=== PATIENT | female | born 1990 | race Caucasian/White ===

== ENCOUNTER 2020-06-14 10:27 | Outpatient (REF) | payer OTHER, SELFPAY ==
[2020-06-14 16:31] LABS: MANUAL DIFF FLAG NO
[2020-06-14 16:36] LABS: Basophils Percent Auto 0.4 % (0-2); Eosinophils Absolute Auto 0.1 X10*3/uL (0.0-0.4); Eosinophils Percent Auto 1.9 % (0-4); Hematocrit 41.3 % (37-47); Hemoglobin 13.1 g/dl (12.0-16.0); Imm Gran Abs Auto 0.02 X10*3/uL (0.00-0.03); Imm Gran Pct Auto 0.3 % (0.0-0.4); Lymphocytes Absolute Auto 2.4 X10*3/uL (1.2-4.9); Lymphocytes Percent Auto 36.3 % (20-40); Mean Corpuscular HGB Conc 31.7 g/dl (31.0-35.0); Mean Corpuscular Hemoglobin 27.9 pg (27.0-33.0); Mean Corpuscular Volume 88.1 fL (80-98); Mean Platelet Volume 10.8 fL (9.4-12.3); Monocytes Absolute Auto 0.3 X10*3/uL (0.1-1.2); Monocytes Percent Auto 4.8 % (2-11); Neutrophils Absolute Auto 3.8 X10*3/uL (2.0-8.3); Neutrophils Percent Auto 56.3 % (45-73); Platelet Count 329 X10*3/uL (160-400); Red Blood Count 4.69 X10*6/uL (4.20-5.50); Red Cell Distribution Width 12.8 % (11.0-16.0); White Blood Count 6.7 X10*3/uL (4.8-10.8)
[2020-06-14 17:01] LABS: Alanine Aminotransferase 47 U/L (0-31); Albumin Level 4.7 g/dL (3.5-5.0); Alkaline Phosphatase 62 U/L (39-117); Anion Gap 19 (12-20); Aspartate Amino Transferase 43 U/L (5-31); Bilirubin Direct 0.3 mg/dL (0.0-0.5); Bilirubin Total 0.9 mg/dL (0.0-1.0); Blood Urea Nitrogen 12 mg/dL (9-16); Calcium 9.1 mg/dL (8.4-10.2); Carbon Dioxide 22 mmol/L (22-29); Chloride 100 mmol/L (96-108); Cholesterol 296 mg/dL; Estimated Glomerular Filt Rate > 60; Glucose Fasting 150 mg/dL (60-99); HDL Cholesterol 71 mg/dL; LDL Cholesterol Calculated 167 mg/dl; Potassium 4.2 mmol/L (3.3-5.1); Sodium 137 mmol/L (135-145); Total Protein 7.5 g/dL (6.5-8.0); Triglycerides 294 mg/dL
[2020-06-14 17:23] LABS: TSH reflex Free T4 2.38 uIU/mL (0.32-4.0)
[2020-06-14 17:24] LABS: Vitamin B12 387 pg/mL (200-900)
[2020-06-20 19:32] LABS: Vitamin D 25-OH, D2 <4 ng/mL; Vitamin D 25-OH, D3 34 ng/mL; Vitamin D 25-OH, Total 34 ng/mL (30-100)
== END 2020-06-14 10:28 | disposition home or self-care (01) ==
LOC: HO.HMGCLDS 10:27
PROVIDERS: PCP Internal Medicine; Visit Provider Internal Medicine
DX: F43.10 Post-traumatic stress disorder, unspecified (principal); F32.9 Major depressive disorder, single episode, unspecified; R10.30 Lower abdominal pain, unspecified; N92.6 Irregular menstruation, unspecified; R25.2 Cramp and spasm; Z76.89 Persons encountering health services in other specified circumstances
CPT/HCPCS: 36415; 80048; 80061; 80076; 82306; 82607; 84443; 85025

== ENCOUNTER 2020-06-17 11:06 | Outpatient (REF) | payer OTHER, SELFPAY ==
[2020-06-18 08:46] LABS: BV Int Neg Control Negative (Negative); BV Int Pos Control Positive (Positive)
[2020-06-18 18:57] LABS: C. trachomatis RNA TMA NOT DETECTED (NOT DETECTED); N. gonorrhoeae RNA TMA NOT DETECTED (NOT DETECTED)
[2020-06-20 16:02] LABS: HPV mRNA E6/E7 rflx Not Detected (Not Detected)
== END 2020-06-17 11:07 | disposition home or self-care (01) ==
LOC: HO.LAB 11:06
PROVIDERS: Visit Provider Advanced Practice Midwife
DX: N93.9 Abnormal uterine and vaginal bleeding, unspecified (principal)
CPT/HCPCS: 36415; 87480; 87491; 87510; 87591; 87624; 87660; 88142

== ENCOUNTER 2020-06-17 12:51 | Outpatient (REF) | payer OTHER, SELFPAY ==
--- NOTE | ~2020-06-17 | US_ITS ---
EXAMINATION: PELVIC ULTRASOUND CLINICAL INFORMATION: Pelvic pain COMPARISON: None TECHNIQUE: Transabdominal and transvaginal pelvic ultrasound was performed. Transvaginal exam was performed for better visualization of the uterus and ovaries. FINDINGS: The uterus is anteverted and measures 6.7 x 3.8 x 5.3 cm in dimension. No focal uterine lesion is seen. Endometrial thickness is normal measuring 0.5 cm. The cervix is normal. The right ovary measures 3.3 x 2.8 x 2.7 cm and contains a 1.4 x 1.4 x 1.3 cm complex cyst with internal echoes. The left ovary is normal-appearing and measures 3.2 x 1.5 x 1.5 cm. There is no fluid in the pelvis. US/US transvaginal IMPRESSION: Small complex right ovarian cyst. Otherwise unremarkable exam.
--- NOTE | ~2020-06-17 | US_ITS ---
EXAMINATION: PELVIC ULTRASOUND CLINICAL INFORMATION: Pelvic pain COMPARISON: None TECHNIQUE: Transabdominal and transvaginal pelvic ultrasound was performed. Transvaginal exam was performed for better visualization of the uterus and ovaries. FINDINGS: The uterus is anteverted and measures 6.7 x 3.8 x 5.3 cm in dimension. No focal uterine lesion is seen. Endometrial thickness is normal measuring 0.5 cm. The cervix is normal. The right ovary measures 3.3 x 2.8 x 2.7 cm and contains a 1.4 x 1.4 x 1.3 cm complex cyst with internal echoes. The left ovary is normal-appearing and measures 3.2 x 1.5 x 1.5 cm. There is no fluid in the pelvis. US/US pelvic complete IMPRESSION: Small complex right ovarian cyst. Otherwise unremarkable exam.
== END 2020-06-17 12:52 | disposition home or self-care (01) ==
LOC: HO.HMGCX 12:51
PROVIDERS: PCP Internal Medicine; Visit Provider Internal Medicine
DX: N92.6 Irregular menstruation, unspecified (principal); R10.30 Lower abdominal pain, unspecified
CPT/HCPCS: 76830; 76856; 81003; 81025

== ENCOUNTER 2020-06-28 09:48 | Outpatient (REF) | payer OTHER, SELFPAY ==
[2020-06-28 12:06] LABS: Estimated Average Glucose 166 mg/dL; Hemoglobin A1c % 7.4 %
[2020-06-30 11:41] LABS: C. trachomatis RNA TMA NOT DETECTED (NOT DETECTED); N. gonorrhoeae RNA TMA NOT DETECTED (NOT DETECTED)
== END 2020-06-28 09:49 | disposition home or self-care (01) ==
LOC: HO.HMGCLDS 09:48
PROVIDERS: PCP Internal Medicine; Visit Provider Internal Medicine
DX: R73.01 Impaired fasting glucose (principal); N93.9 Abnormal uterine and vaginal bleeding, unspecified
CPT/HCPCS: 36415; 83036; 87491; 87591

== ENCOUNTER → 2020-07-01 08:48 | Outpatient (BNVA) | payer OTHER, SELFPAY | PROVIDERS: PCP Internal Medicine; Visit Provider Advanced Practice Midwife | DX: N93.9 Abnormal uterine and vaginal bleeding, unspecified (principal); N83.299 Other ovarian cyst, unspecified side; Z71.2 Person consulting for explanation of examination or test findings | CPT/HCPCS: 99212 ==

== ENCOUNTER 2020-08-27 12:53 | Outpatient (REF) | payer OTHER, SELFPAY ==
--- NOTE | ~2020-08-27 | US_ITS ---
EXAMINATION: US PELVIS COMPLETE US PELVIS TRANSVAGINAL CLINICAL INFORMATION: Followup right ovarian cyst. LMP 07/22/2020. COMPARISON: Pelvic ultrasound dated 06/17/2020 TECHNIQUE: Transabdominal and transvaginal imaging was performed. FINDINGS: The uterus is of normal size and echogenicity measuring 7.6 x 5.1 x 5.2 cm. A regular homogeneous endometrium is identified measuring 1.0 cm. There are nabothian cysts. Both ovaries are of normal size and echogenicity. The right measures 3.7 x 2.5 x 1.9 cm for a volume of 8.8 mL. Redemonstration of a thick-walled cyst within the right ovary which measures 1.9 x 1.5 x 1.2 cm. Previously, a complex cyst was seen in this region measuring up to 1.4 cm. Findings may represent a corpus luteum. The left measures 3.5 x 1.4 x 1.6 cm for a volume of 4 mL. There is no pelvic free fluid. US/US transvaginal IMPRESSION: 1. Thick-walled right ovarian cyst measuring up to 1.9 cm in the region of the previously seen complex 1.4 cm cyst. Findings may represent a corpus luteum. 2. No new adnexal lesion. 3. Sonographically unremarkable uterus and endometrium.
--- NOTE | ~2020-08-27 | US_ITS ---
EXAMINATION: US PELVIS COMPLETE US PELVIS TRANSVAGINAL CLINICAL INFORMATION: Followup right ovarian cyst. LMP 07/22/2020. COMPARISON: Pelvic ultrasound dated 06/17/2020 TECHNIQUE: Transabdominal and transvaginal imaging was performed. FINDINGS: The uterus is of normal size and echogenicity measuring 7.6 x 5.1 x 5.2 cm. A regular homogeneous endometrium is identified measuring 1.0 cm. There are nabothian cysts. Both ovaries are of normal size and echogenicity. The right measures 3.7 x 2.5 x 1.9 cm for a volume of 8.8 mL. Redemonstration of a thick-walled cyst within the right ovary which measures 1.9 x 1.5 x 1.2 cm. Previously, a complex cyst was seen in this region measuring up to 1.4 cm. Findings may represent a corpus luteum. The left measures 3.5 x 1.4 x 1.6 cm for a volume of 4 mL. There is no pelvic free fluid. US/US pelvic complete IMPRESSION: 1. Thick-walled right ovarian cyst measuring up to 1.9 cm in the region of the previously seen complex 1.4 cm cyst. Findings may represent a corpus luteum. 2. No new adnexal lesion. 3. Sonographically unremarkable uterus and endometrium.
== END 2020-08-27 12:54 | disposition home or self-care (01) ==
LOC: HO.HMGCX 12:53
PROVIDERS: Visit Provider Advanced Practice Midwife
DX: N83.299 Other ovarian cyst, unspecified side (principal)
CPT/HCPCS: 76830; 76856

== ENCOUNTER 2020-08-28 07:45 | Outpatient (RCR) | payer OTHER, SELFPAY ==
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
--- NOTE | 2020-07-08 07:28 | HO.TMSDAILY2 ---
TMS Daily Progress Note Daily TMS Progress Note Date of Service: 07/08/20 Week #: 1 Treatment #(06-08): 1 PHQ-9 Pre-Treatment (06-05): 20 PHQ-9 Most Recent (06-05): 20 Reviewed: TMS Tech Note Reviewed Verification: I have reviewed the TMS Crm Functional Analyst Note and agree with the contents. The patient remains a candidate to continue TMS treatment per protocol.
--- NOTE | 2020-07-09 15:25 | P.PNPS_ITS ---
TMS Daily Progress Note Daily TMS Progress Note Date of Service: 07/09/20 Week #: 1 Treatment #(06-08): 2 PHQ-9 Pre-Treatment (06-05): 20 PHQ-9 Most Recent (06-05): 20 Reviewed: TMS Tech Note Reviewed Verification: I have reviewed the TMS Radio Communications Mechanician Note and agree with the contents. The patient remains a candidate to continue TMS treatment per pro tocol.
--- NOTE | 2020-07-10 08:26 | P.PNPS_ITS ---
TMS Daily Progress Note Daily TMS Progress Note Date of Service: 07/10/20 Week #: 1 Treatment #(06-08): 3 PHQ-9 Pre-Treatment (06-05): 20 PHQ-9 Most Recent (06-05): 20 Reviewed: TMS Tech Note Reviewed Verification: I have reviewed the TMS Mobile Paramedical Examiner Note and agree with the contents. The patient remains a candidate to continue TMS treatment per pro tocol.
--- NOTE | 2020-07-11 22:58 | P.PNPS_ITS ---
TMS Daily Progress Note Daily TMS Progress Note Date of Service: 07/11/20 Week #: 1 Treatment #(06-08): 4 PHQ-9 Pre-Treatment (06-05): 20 PHQ-9 Most Recent (06-05): 20 Reviewed: TMS Tech Note Reviewed Verification: I have reviewed the TMS Elastic Attacher Overlock Note and agree with the contents. The patient remains a candidate to continue TMS treatment per pro tocol.
--- NOTE | 2020-07-12 23:32 | HO.TMSDAILY2 ---
TMS Daily Progress Note Daily TMS Progress Note Date of Service: 07/13/20 Week #: 1 Treatment #(06-08): 5 PHQ-9 Pre-Treatment (06-05): 20 PHQ-9 Most Recent (06-05): 20 Reviewed: TMS Tech Note Reviewed Verification: I have reviewed the TMS Automatic Winder Operator Note and agree with the contents. The patient remains a candidate to continue TMS treatment per protocol.
--- NOTE | 2020-07-15 21:19 | P.PNPS_ITS ---
TMS Daily Progress Note Daily TMS Progress Note Date of Service: 07/15/20 Week #: 2 Treatment #(06-08): 6 PHQ-9 Pre-Treatment (06-05): 20 PHQ-9 Most Recent (06-05): 20 Reviewed: TMS Tech Note Reviewed Verification: I have reviewed the TMS Iv Technician Note and agree with the contents. The patient remains a candidate to continue TMS treatment per pro tocol.
--- NOTE | 2020-07-16 14:52 | P.PNPS_ITS ---
TMS Daily Progress Note Daily TMS Progress Note Date of Service: 07/16/20 Week #: 2 Treatment #(06-08): 7 PHQ-9 Pre-Treatment (06-05): 20 PHQ-9 Most Recent (06-05): 20 Reviewed: TMS Tech Note Reviewed Verification: I have reviewed the TMS Water Sponger Note and agree with the contents. The patient remains a candidate to continue TMS treatment per pro tocol.
--- NOTE | 2020-07-17 22:11 | HO.TMSDAILY2 ---
TMS Daily Progress Note Daily TMS Progress Note Date of Service: 07/17/20 Week #: 2 Treatment #(06-08): 8 PHQ-9 Pre-Treatment (06-05): 20 PHQ-9 Most Recent (06-05): 20 Reviewed: TMS Tech Note Reviewed Verification: I have reviewed the TMS Sterile Processing Manager Note and agree with the contents. The patient remains a candidate to continue TMS treatment per protocol.
--- NOTE | 2020-07-18 22:09 | HO.TMSDAILY2 ---
TMS Daily Progress Note Daily TMS Progress Note Date of Service: 07/18/20 Week #: 2 Treatment #(06-08): 9 PHQ-9 Pre-Treatment (06-05): 20 PHQ-9 Most Recent (06-05): 20 Reviewed: TMS Tech Note Reviewed Verification: I have reviewed the TMS Medical Legal Investigator Note and agree with the contents. The patient remains a candidate to continue TMS treatment per protocol.
--- NOTE | 2020-07-19 22:57 | HO.TMSDAILY2 ---
TMS Daily Progress Note Daily TMS Progress Note Date of Service: 07/19/20 Week #: 2 Treatment #(06-08): 10 PHQ-9 Pre-Treatment (06-05): 20 PHQ-9 Most Recent (06-05): 20 Reviewed: TMS Tech Note Reviewed Verification: I have reviewed the TMS Insurance Marketing Specialist Note and agree with the contents. The patient remains a candidate to continue TMS treatment per protocol.
--- NOTE | 2020-07-22 22:48 | P.PNPS_ITS ---
TMS Daily Progress Note Daily TMS Progress Note Date of Service: 07/22/20 Week #: 3 Treatment #(06-08): 11 PHQ-9 Pre-Treatment (06-05): 20 PHQ-9 Most Recent (06-05): 20 Reviewed: TMS Tech Note Reviewed Verification: I have reviewed the TMS Plate Glass Grinder Note and agree with the contents. The patient remains a candidate to continue TMS treatment per pr otocol.
--- NOTE | 2020-07-23 22:58 | P.PNPS_ITS ---
TMS Daily Progress Note Daily TMS Progress Note Date of Service: 07/23/20 Week #: 3 Treatment #(06-08): 12 PHQ-9 Pre-Treatment (06-05): 20 PHQ-9 Most Recent (06-05): 20 Reviewed: TMS Tech Note Reviewed Verification: I have reviewed the TMS Calibration Laboratory Technician Note and agree with the contents. The patient remains a candidate to continue TMS treatment per pr otocol.
--- NOTE | 2020-07-24 22:36 | HO.TMSDAILY2 ---
TMS Daily Progress Note Daily TMS Progress Note Date of Service: 07/24/20 Week #: 3 Treatment #(06-08): 13 PHQ-9 Pre-Treatment (06-05): 20 PHQ-9 Most Recent (06-05): 20 Reviewed: TMS Tech Note Reviewed Verification: I have reviewed the TMS Geographic Information Systems Analyst Note and agree with the contents. The patient remains a candidate to continue TMS treatment per protocol.
--- NOTE | 2020-07-26 23:26 | HO.TMSDAILY2 ---
TMS Daily Progress Note Daily TMS Progress Note Date of Service: 07/26/20 Week #: 3 Treatment #(06-08): 15 PHQ-9 Pre-Treatment (06-05): 20 PHQ-9 Most Recent (06-05): 20 Reviewed: TMS Tech Note Reviewed Verification: I have reviewed the TMS Nuclear Medicine Chief Technologist Note and agree with the contents. The patient remains a candidate to continue TMS treatment per protocol.
--- NOTE | 2020-07-29 22:17 | HO.TMSDAILY2 ---
TMS Daily Progress Note Daily TMS Progress Note Date of Service: 07/29/20 Week #: 4 Treatment #(06-08): 16 PHQ-9 Pre-Treatment (06-05): 20 PHQ-9 Most Recent (06-05): 20 Reviewed: TMS Tech Note Reviewed Verification: I have reviewed the TMS Senior Property Manager Note and agree with the contents. The patient remains a candidate to continue TMS treatment per protocol.
--- NOTE | 2020-07-30 21:56 | P.PNPS_ITS ---
TMS Daily Progress Note Daily TMS Progress Note Date of Service: 07/30/20 Week #: 3 (c) Treatment #(06-08): 17 PHQ-9 Pre-Treatment (06-05): 20 PHQ-9 Most Recent (06-05): 20 Reviewed: TMS Tech Note Reviewed Verification: I have reviewed the TMS Rn Support Services Note and agree with the contents. The patient remains a candidate to continue TMS treatment per protocol.
--- NOTE | 2020-08-01 21:33 | HO.TMSDAILY2 ---
TMS Daily Progress Note Daily TMS Progress Note Date of Service: 08/01/20 Week #: 4 Treatment #(06-08): 18 PHQ-9 Pre-Treatment (06-05): 20 PHQ-9 Most Recent (06-05): 20 Reviewed: TMS Tech Note Reviewed Verification: I have reviewed the TMS Educational Psychologist Note and agree with the contents. The patient remains a candidate to continue TMS treatment per protocol.
--- NOTE | 2020-08-01 21:34 | HO.TMSDAILY2 ---
TMS Daily Progress Note Daily TMS Progress Note Date of Service: 08/01/20 Week #: 4 Treatment #(06-08): 19 PHQ-9 Pre-Treatment (06-05): 20 PHQ-9 Most Recent (06-05): 20 Reviewed: TMS Tech Note Reviewed Verification: I have reviewed the TMS Semiconductor Lab Technician Note and agree with the contents. The patient remains a candidate to continue TMS treatment per protocol.
--- NOTE | 2020-08-02 21:44 | HO.ECTPROC ---
ECT Procedure Note Diagnosis/Treatment Date of Service: 08/02/20 ECT Settings Device: THYMATRON DGx
--- NOTE | 2020-08-05 22:08 | HO.TMSDAILY2 ---
TMS Daily Progress Note Daily TMS Progress Note Date of Service: 08/05/20 Week #: 5 Treatment #(06-08): 21 PHQ-9 Pre-Treatment (06-05): 20 PHQ-9 Most Recent (06-05): 20 Reviewed: TMS Tech Note Reviewed Verification: I have reviewed the TMS Registered Dental Assistant Note and agree with the contents. The patient remains a candidate to continue TMS treatment per protocol.
--- NOTE | 2020-08-06 21:59 | P.PNPS_ITS ---
TMS Daily Progress Note Daily TMS Progress Note Date of Service: 08/06/20 Week #: 5 Treatment #(06-08): 22 PHQ-9 Pre-Treatment (06-05): 20 PHQ-9 Most Recent (06-05): 20 Reviewed: TMS Tech Note Reviewed Verification: I have reviewed the TMS Pearl Peller Note and agree with the contents. The patient remains a candidate to continue TMS treatment per pr otocol.
--- NOTE | 2020-08-07 22:43 | P.PNPS_ITS ---
TMS Daily Progress Note Daily TMS Progress Note Date of Service: 08/07/20 Week #: 4 Treatment #(06-08): 22 PHQ-9 Pre-Treatment (06-05): 20 PHQ-9 Most Recent (06-05): 20 Reviewed: TMS Tech Note Reviewed Verification: I have reviewed the TMS Ceramic Plater Note and agree with the contents. The patient remains a candidate to continue TMS treatment per pr otocol.
--- NOTE | 2020-08-07 22:44 | P.PNPS_ITS ---
TMS Daily Progress Note Daily TMS Progress Note Date of Service: 08/07/20 Week #: 5 Treatment #(06-08): 23 PHQ-9 Pre-Treatment (06-05): 20 PHQ-9 Most Recent (06-05): 20 Reviewed: TMS Tech Note Reviewed Verification: I have reviewed the TMS Life Enrichment Specialist Note and agree with the contents. The patient remains a candidate to continue TMS treatment per pr otocol.
--- NOTE | 2020-08-08 21:11 | P.PNPS_ITS ---
TMS Daily Progress Note Daily TMS Progress Note Date of Service: 08/08/20 Week #: 5 Treatment #(06-08): 24 PHQ-9 Pre-Treatment (06-05): 20 PHQ-9 Most Recent (06-05): 20 Reviewed: TMS Tech Note Reviewed Verification: I have reviewed the TMS Industrial Chemicals Supervisor Note and agree with the contents. The patient remains a candidate to continue TMS treatment per pr otocol.
--- NOTE | 2020-08-09 22:18 | P.PNPS_ITS ---
TMS Daily Progress Note Daily TMS Progress Note Date of Service: 08/09/20 Week #: 5 Treatment #(06-08): 25 PHQ-9 Pre-Treatment (06-05): 20 PHQ-9 Most Recent (06-05): 20 Reviewed: TMS Tech Note Reviewed Verification: I have reviewed the TMS Granite Block Paver Note and agree with the contents. The patient remains a candidate to continue TMS treatment per pr otocol.
--- NOTE | 2020-08-12 20:56 | HO.TMSDAILY2 ---
TMS Daily Progress Note Daily TMS Progress Note Date of Service: 08/12/20 Week #: 6 Treatment #(06-08): 26 PHQ-9 Pre-Treatment (06-05): 20 PHQ-9 Most Recent (06-05): 20 Reviewed: TMS Tech Note Reviewed Verification: I have reviewed the TMS Deep Submergence Vehicle Crewmember Note and agree with the contents. The patient remains a candidate to continue TMS treatment per protocol.
--- NOTE | 2020-08-12 21:00 | HO.TMSDAILY2 ---
TMS Daily Progress Note Daily TMS Progress Note Date of Service: 08/12/20 Week #: 6 Treatment #(06-08): 26 PHQ-9 Pre-Treatment (06-05): 20 PHQ-9 Most Recent (06-05): 20 Reviewed: TMS Tech Note Reviewed Verification: I have reviewed the TMS Reading Specialist Note and agree with the contents. The patient remains a candidate to continue TMS treatment per protocol.
--- NOTE | 2020-08-13 22:26 | HO.TMSDAILY2 ---
TMS Daily Progress Note Daily TMS Progress Note Date of Service: 08/13/20 Week #: 6 Treatment #(06-08): 27 PHQ-9 Pre-Treatment (06-05): 20 PHQ-9 Most Recent (06-05): 20 Reviewed: TMS Tech Note Reviewed Verification: I have reviewed the TMS Cannon Fire Direction Specialist Note and agree with the contents. The patient remains a candidate to continue TMS treatment per protocol.
--- NOTE | 2020-08-14 22:26 | P.PNPS_ITS ---
TMS Daily Progress Note Daily TMS Progress Note Date of Service: 08/14/20 Week #: 6 Treatment #(06-08): 28 PHQ-9 Pre-Treatment (06-05): 20 PHQ-9 Most Recent (06-05): 20 Reviewed: TMS Tech Note Reviewed Verification: I have reviewed the TMS Channel Cementer Outsole Machine Note and agree with the contents. The patient remains a candidate to continue TMS treatment per pr otocol.
--- NOTE | 2020-08-15 22:48 | P.PNPS_ITS ---
TMS Daily Progress Note Daily TMS Progress Note Date of Service: 08/15/20 Week #: 6 Treatment #(06-08): 29 PHQ-9 Pre-Treatment (06-05): 20 PHQ-9 Most Recent (06-05): 20 Reviewed: TMS Tech Note Reviewed Verification: I have reviewed the TMS Cable Mechanic Note and agree with the contents. The patient remains a candidate to continue TMS treatment per pr otocol.
--- NOTE | 2020-08-16 10:02 | HO.TMSDAILY2 ---
TMS Daily Progress Note Daily TMS Progress Note Date of Service: 08/16/20 Week #: 6 Treatment #(06-08): 30 PHQ-9 Pre-Treatment (06-05): 20 PHQ-9 Most Recent (06-05): 20 Reviewed: TMS Tech Note Reviewed Verification: I have reviewed the TMS Vice President Medical Affairs Note and agree with the contents. The patient remains a candidate to continue TMS treatment per protocol.
--- NOTE | 2020-08-19 21:33 | HO.TMSDAILY2 ---
TMS Daily Progress Note Daily TMS Progress Note Date of Service: 08/19/20 Week #: 6 Treatment #(06-08): 31 PHQ-9 Pre-Treatment (06-05): 20 PHQ-9 Most Recent (06-05): 20 Reviewed: TMS Tech Note Reviewed Verification: I have reviewed the TMS Telecom Field Technician Note and agree with the contents. The patient remains a candidate to continue TMS treatment per protocol.
--- NOTE | 2020-08-21 22:18 | P.PNPS_ITS ---
TMS Daily Progress Note Daily TMS Progress Note Date of Service: 08/21/20 Week #: 7 Treatment #(06-08): 32 PHQ-9 Pre-Treatment (06-05): 20 PHQ-9 Most Recent (06-05): 20 Reviewed: TMS Tech Note Reviewed Verification: I have reviewed the TMS Hazardous Materials Waste Technician Note and agree with the contents. The patient remains a candidate to continue TMS treatment per pr otocol.
--- NOTE | 2020-08-22 21:46 | P.PNPS_ITS ---
TMS Daily Progress Note Daily TMS Progress Note Date of Service: 08/22/20 Week #: 8 Treatment #(06-08): 33 PHQ-9 Pre-Treatment (06-05): 20 PHQ-9 Most Recent (06-05): 20 Reviewed: TMS Tech Note Reviewed Verification: I have reviewed the TMS Director Of Exhibit Development Note and agree with the contents. The patient remains a candidate to continue TMS treatment per pr otocol.
--- NOTE | 2020-08-23 22:01 | HO.TMSDAILY2 ---
TMS Daily Progress Note Daily TMS Progress Note Date of Service: 08/23/20 Week #: 8 Treatment #(06-08): 34 PHQ-9 Pre-Treatment (06-05): 20 PHQ-9 Most Recent (06-05): 20 Reviewed: TMS Tech Note Reviewed Verification: I have reviewed the TMS Wrapping Machine Tender Note and agree with the contents. The patient remains a candidate to continue TMS treatment per protocol.
--- NOTE | 2020-08-27 15:24 | P.PNPS_ITS ---
TMS Daily Progress Note Daily TMS Progress Note Date of Service: 08/27/20 Week #: 8 Treatment #(06-08): 35 PHQ-9 Pre-Treatment (06-05): 20 PHQ-9 Most Recent (06-05): 20 Reviewed: TMS Tech Note Reviewed Verification: I have reviewed the TMS Animal Control Officer Note and agree with the contents. The patient remains a candidate to continue TMS treatment per pr otocol.
--- NOTE | 2020-08-28 22:58 | P.PNPS_ITS ---
TMS Daily Progress Note Daily TMS Progress Note Date of Service: 08/28/20 Week #: 8 Treatment #(06-08): 36 PHQ-9 Pre-Treatment (06-05): 20 PHQ-9 Most Recent (06-05): 20 Reviewed: TMS Tech Note Reviewed Verification: I have reviewed the TMS Manufacturing Specialist Note and agree with the contents. The patient remains a candidate to continue TMS treatment per pr otocol.
== END 2020-08-28 08:24 | disposition home or self-care (01) ==
LOC: HO.PTMS 07:45
PROVIDERS: PCP Internal Medicine; Visit Provider Psychiatry & Neurology Psychiatry
DX: F33.2 Major depressive disorder, recurrent severe without psychotic features (principal); F41.1 Generalized anxiety disorder
CPT/HCPCS: 90867; 90868

== ENCOUNTER 2020-09-10 11:23 | Outpatient (REF) | payer OTHER, SELFPAY ==
[2020-09-11 09:47] LABS: CA-125 10 U/mL (<35)
[2020-09-11 11:13] LABS: CT PCR NOT DETECTED (Not Detect.)
[2020-09-11 11:14] LABS: NG PCR NOT DETECTED (Not Detect.)
== END 2020-09-10 11:24 | disposition home or self-care (01) ==
LOC: HO.HMGCLDS 11:23
PROVIDERS: PCP Internal Medicine; Visit Provider Advanced Practice Midwife
DX: Z71.2 Person consulting for explanation of examination or test findings (principal); N93.9 Abnormal uterine and vaginal bleeding, unspecified; N83.299 Other ovarian cyst, unspecified side
CPT/HCPCS: 86304; 87491; 87591

== ENCOUNTER → 2020-10-09 13:23 | Outpatient (BNVA) | payer OTHER, SELFPAY | PROVIDERS: PCP Internal Medicine; Visit Provider Advanced Practice Midwife ==

== ENCOUNTER 2020-10-11 09:23 | Outpatient (REF) | payer OTHER, SELFPAY ==
[2020-10-11 12:25] LABS: Alanine Aminotransferase 36 U/L (0-31); Albumin Level 4.6 g/dL (3.5-5.0); Alkaline Phosphatase 65 U/L (39-117); Anion Gap 16 (12-20); Aspartate Amino Transferase 26 U/L (5-31); Bilirubin Direct 0.3 mg/dL (0.0-0.5); Bilirubin Total 0.9 mg/dL (0.0-1.0); Blood Urea Nitrogen 16 mg/dL (9-16); Calcium 9.3 mg/dL (8.4-10.2); Carbon Dioxide 23 mmol/L (22-29); Chloride 104 mmol/L (96-108); Cholesterol 265 mg/dL; Estimated Glomerular Filt Rate > 60; Glucose Fasting 152 mg/dL (60-99); HDL Cholesterol 62 mg/dL; LDL Cholesterol Calculated 158 mg/dl; Potassium 4.4 mmol/L (3.3-5.1); Sodium 139 mmol/L (135-145); Total Protein 7.3 g/dL (6.5-8.0); Triglycerides 229 mg/dL
[2020-10-11 12:32] LABS: Estimated Average Glucose 151 mg/dL; Hemoglobin A1c % 6.9 %
== END 2020-10-11 09:24 | disposition home or self-care (01) ==
LOC: HO.HMGCLDS 09:23
PROVIDERS: PCP Internal Medicine; Visit Provider Internal Medicine
DX: E13.9 Other specified diabetes mellitus without complications (principal); E78.9 Disorder of lipoprotein metabolism, unspecified; R79.89 Other specified abnormal findings of blood chemistry
CPT/HCPCS: 36415; 80048; 80061; 80076; 83036

== ENCOUNTER 2021-01-20 08:53 | Outpatient (REF) | payer OTHER, SELFPAY ==
[2021-01-20 11:53] LABS: Estimated Average Glucose 148 mg/dL; Hemoglobin A1c % 6.8 %
[2021-01-20 11:59] LABS: Alanine Aminotransferase 17 U/L (0-31); Albumin Level 4.5 g/dL (3.5-5.0); Alkaline Phosphatase 58 U/L (39-117); Aspartate Amino Transferase 15 U/L (5-31); Total Protein 7.1 g/dL (6.5-8.0)
[2021-01-20 12:16] LABS: Bilirubin Direct 0.3 mg/dL (0.0-0.5)
== END 2021-01-20 08:54 | disposition home or self-care (01) ==
LOC: HO.HMGCLDS 08:53
PROVIDERS: PCP Internal Medicine; Visit Provider Internal Medicine
DX: E13.9 Other specified diabetes mellitus without complications (principal); E78.9 Disorder of lipoprotein metabolism, unspecified
CPT/HCPCS: 36415; 80076; 83036

== ENCOUNTER 2021-02-21 15:26 | Outpatient (REF) | payer OTHER, SELFPAY ==
--- NOTE | ~2021-02-21 | US_ITS ---
EXAMINATION: US PELVIS CLINICAL INFORMATION: Spotting 4 days ago, today heavy bleeding. COMPARISON: Pelvic ultrasound dated 08/27/2020. TECHNIQUE: Ultrasound of the pelvis is performed using both transabdominal and transvaginal transducers along with Doppler. Transvaginal imaging is performed due to inadequate visualization transabdominally. FINDINGS: Uterus: Anteverted/anteflexed measuring 10.0 x 4.0 x 6.0 cm. The endometrial stripe measures up to 0.8 cm. The cervix is closed. Nabothian cysts are seen anteriorly towards the cervical os without abnormality. No free fluid is seen in the cul-de-sac. Right ovary: 3.8 x 2.4 x 2.0 cm with a volume of 14 mL. Several follicles are seen. Color Doppler showed no abnormal vascular flow. Left ovary: 3.2 x 1.3 x 2.0 cm with a volume of 4 mL. Several follicles are seen. Color Doppler showed no abnormal vascular flow. Urinary bladder: Moderately distended without focal abnormality. US/US pelvic and transvaginal IMPRESSION: Unremarkable pelvic ultrasound.
== END 2021-02-21 15:27 | disposition home or self-care (01) ==
LOC: HO.US 15:26
PROVIDERS: PCP Internal Medicine; Visit Provider Advanced Practice Midwife
DX: N83.299 Other ovarian cyst, unspecified side (principal)
CPT/HCPCS: 76830; 76856

== ENCOUNTER 2021-02-27 09:16 | Outpatient (REF) | payer OTHER, SELFPAY ==
[2021-02-27 13:54] LABS: MANUAL DIFF FLAG NO
[2021-02-27 14:06] LABS: Basophils Percent Auto 0.5 % (0-2); Eosinophils Absolute Auto 0.2 X10*3/uL (0.0-0.4); Eosinophils Percent Auto 2.1 % (0-4); Hematocrit 39.3 % (37-47); Hemoglobin 12.9 g/dl (12.0-16.0); Imm Gran Abs Auto 0.05 X10*3/uL (0.00-0.03); Imm Gran Pct Auto 0.7 % (0.0-0.4); Lymphocytes Absolute Auto 3.2 X10*3/uL (1.2-4.9); Lymphocytes Percent Auto 42.7 % (20-40); Mean Corpuscular HGB Conc 32.8 g/dl (31.0-35.0); Mean Corpuscular Hemoglobin 28.6 pg (27.0-33.0); Mean Corpuscular Volume 87.1 fL (80-98); Mean Platelet Volume 10.7 fL (9.4-12.3); Monocytes Absolute Auto 0.4 X10*3/uL (0.1-1.2); Monocytes Percent Auto 4.9 % (2-11); Neutrophils Absolute Auto 3.7 X10*3/uL (2.0-8.3); Neutrophils Percent Auto 49.1 % (45-73); Platelet Count 329 X10*3/uL (160-400); Red Blood Count 4.51 X10*6/uL (4.20-5.50); Red Cell Distribution Width 12.9 % (11.0-16.0); White Blood Count 7.6 X10*3/uL (4.8-10.8)
[2021-02-27 14:44] LABS: Thyroid Stimulating Hormone 1.93 uIU/mL (0.32-4.0)
[2021-02-28 14:03] LABS: DHEA Sulfate 444 mcg/dL (23-266)
[2021-03-04 11:12] LABS: Testosterone, Free 3.6 pg/mL (0.1-6.4); Testosterone, Total 22 ng/dL (2-45)
== END 2021-02-27 09:17 | disposition home or self-care (01) ==
LOC: HO.HMGCLDS 09:16
PROVIDERS: PCP Internal Medicine; Visit Provider Advanced Practice Midwife
DX: N92.6 Irregular menstruation, unspecified (principal); Z71.2 Person consulting for explanation of examination or test findings
CPT/HCPCS: 36415; 82627; 83498; 84402; 84403; 84443; 85025

== ENCOUNTER → 2021-03-04 11:01 | Outpatient (BNVA) | payer OTHER, SELFPAY | PROVIDERS: PCP Internal Medicine; Visit Provider Advanced Practice Midwife ==

== ENCOUNTER 2021-06-04 10:52 | Outpatient (REF) | payer OTHER, SELFPAY ==
[2021-06-04 14:19] LABS: Estimated Average Glucose 146 mg/dL; Hemoglobin A1c % 6.7 %
[2021-06-04 14:42] LABS: Alanine Aminotransferase 39 U/L (0-31); Albumin Level 4.5 g/dL (3.5-5.0); Alkaline Phosphatase 56 U/L (39-117); Anion Gap 17 (12-20); Aspartate Amino Transferase 34 U/L (5-31); Bilirubin Total 0.8 mg/dL (0.0-1.0); Blood Urea Nitrogen 14 mg/dL (9-16); Calcium 9.6 mg/dL (8.4-10.2); Carbon Dioxide 23 mmol/L (22-29); Chloride 103 mmol/L (96-108); Estimated Glomerular Filt Rate > 60; Glucose Random 119 mg/dL (60-115); Sodium 139 mmol/L (135-145); Total Protein 7.6 g/dL (6.5-8.0)
== END 2021-06-04 10:53 | disposition home or self-care (01) ==
LOC: HO.HMGCLDS 10:52
PROVIDERS: PCP Internal Medicine; Visit Provider Internal Medicine
DX: E13.9 Other specified diabetes mellitus without complications (principal); E27.8 Other specified disorders of adrenal gland; G25.81 Restless legs syndrome
CPT/HCPCS: 36415; 80053; 83036

== ENCOUNTER → 2021-06-11 14:42 | Outpatient (BNVA) | payer OTHER, SELFPAY | PROVIDERS: PCP Internal Medicine; Referring Provider Internal Medicine; Visit Provider Surgery | DX: K64.8 Other hemorrhoids (principal) | CPT/HCPCS: 46600; 99202 ==

== ENCOUNTER 2021-06-19 10:52 | Outpatient (REF) | payer OTHER, SELFPAY ==
[2021-06-19 17:01] LABS: CT PCR NOT DETECTED (Not Detect.); NG PCR NOT DETECTED (Not Detect.)
== END 2021-06-19 10:53 | disposition home or self-care (01) ==
LOC: HO.LAB 10:52
PROVIDERS: Visit Provider Advanced Practice Midwife
DX: Z11.3 Encounter for screening for infections with a predominantly sexual mode of transmission (principal)
CPT/HCPCS: 87491; 87591

== ENCOUNTER → 2021-06-25 09:01 | Outpatient (BNVA) | payer OTHER, SELFPAY | PROVIDERS: PCP Internal Medicine; Visit Provider Nurse Practitioner Family | DX: R06.83 Snoring (principal); R40.0 Somnolence; G25.81 Restless legs syndrome | CPT/HCPCS: 99202 ==

== ENCOUNTER 2021-08-01 08:33 | Day surgery (SDC) | payer OTHER, SELFPAY ==
[2021-07-28 15:03] VITALS: BMI 29.8
--- NOTE | 2021-07-30 14:43 | P.CONAN_ITS ---
Documented by User: Ramonita Escobar NP 07/30/21 14:44 HPI - Anesthesia Eval Consult details Narrative: 31yo F for EUA, Hemorrhoidectomy PMFSH Active Problems Active Problems: All Active Problems (Updated 06/19/21 @ 11:16 by Zoila Cornelius) Encounter for annual routine gynecological examination (Acute) Irritable bowel syndrome (Acute) Obesity due to excess calories (Acute) Snoring (Acute) Daytime somnolence (Acute) Fatigue (Acute) Encounter for general adult medical examination with abnormal findings (Acute) Hemorrhoids with complication (Acute) Restless leg syndrome (Acute) Hemorrhoid prolapse (Acute) Elevated dehydroepiandrosterone sulfate level (Acute) Diabetes 1.5, managed as type 2 (Acute) Encounter to discuss test results (Acute) Complex ovarian cyst (Acute) Generalized anxiety disorder (Acute) Depression, major, severe recurrence (Acute) Obesity (Acute) LFT elevation (Acute) Lipid disorder (Acute) Abnormal uterine bleeding (AUB) (Acute) PTSD (post-traumatic stress disorder) (Acute) Major depression, chronic (Acute) Lower abdominal pain (Acute) Irregular menstrual cycle (Acute) Muscle cramps (Acute) Establishing care with new doctor, encounter for (Acute) Past Medical History Medical History Depression, major, 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, managed as type 2 Elevated dehydroepiandrosterone sulfate level Generalized anxiety disorder Hemorrhoids with complication Family History Family History Father Diabetes Other Mental health disorder Substance use disorder Surgical History Surgical History History of tonsillectomy Social History Social History (Updated 06/25/21 @ 09:09 by Magnolia Blum) Housing: Condominium Alcohol intake: never Patient Tobacco Use Status: Never used Tobacco Advance Directives: No Advance Directives Information Provided: Yes Nutrition Risks: No Nutritional Risk Patient : No Current occupation: stay at home mom Sexual orientation: Straight/Heterosexual Gender identity: Female Meds Allergies Allergy/AdvReac Type Severity Reaction Status Date / Time glipizide AdvReac Severe chest pains Verified 06/25/21 09:08 Exam Exam Date and Time: July 30, 2021 1443 Height,Weight and Vital Signs: Height 5 ft 2.5 in Weight 75.296 kg Assessment and Plan Assessment Anesthesia Assessment: Chart Reviewed Documented by User: Phillip Mcnamara MD 08/01/21 10:05 [facility] Past Medical History Medical History Depression, major, 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, managed as type 2 Elevated dehydroepiandrosterone sulfate level Generalized anxiety disorder Hemorrhoids with complication Patient : No Family History Family History Father Diabetes Other Mental health disorder Substance use disorder Family history of problems with anesthesia: No Surgical History Surgical History History of tonsillectomy History of Problems with Anesthesia: No Social History Social History (Updated 06/25/21 @ 09:09 by Magnolia Blum) Housing: Condominium Alcohol intake: never Patient Tobacco Use Status: Never used Tobacco Advance Directives: No Advance Directives Information Provided: Yes Nutrition Risks: No Nutritional Risk Patient : No Current occupation: stay at home mom Sexual orientation: Straight/Heterosexual Gender identity: Female Meds Allergies Allergy/AdvReac Type Severity Reaction Status Date / Time glipizide AdvReac Severe chest pains Verified 06/25/21 09:08 Exam Airway Mallampati Class: I TM Dist: >3cm Neck ROM: Full Loose/Missing/Broken Teeth: No Heart: ok Lungs: ok Assessment and Plan Final Anesthetic Review Family History of Problems with Anesthesia: No History of Problems with Anesthesia: No NPO: Yes ASA Class: II Final Preanesthetic Review: No Changes in Pt Med Stat, Meds/Allgs Chart Reviewed, Consent Obtained/Reviewed and Anes Risks/Benef Reviewed Patient Risk: Low Procedure Risk: Low Anesthetic Plan Anesthetic Plan: GA and Agree w/ Assess. and Plan Disposition: Standard PACU
[2021-08-01] VITALS (8 sets, daily range): BP systolic 110–149; BP diastolic 69–93; PULSE 62–93; RESP 12–18; TEMP 36.2–36.7; O2SAT 96–100
[2021-08-01 08:47] LABS: Glucose, Whole Blood 155 mg/dL (60-115)
[2021-08-01] MEDS: Lactated Ringers 1,000 ML 100 ML IVCONT (09:03)
[2021-08-01 09:04] LABS: UPreg QC Valid YES; Urine Pregnancy NEGATIVE (NEGATIVE)
--- NOTE | 2021-08-01 09:42 | P.HPSUR_ITS ---
Pre-Procedural Eval Section A Date of Service: 08/01/21 Section B Chief Complaint: Hemorrhoids with complication Details of Present Illness: Has had no history of periodic pain, swelling, and bleeding from hemorrhoids Relevant Family History (Specify if Yes): No Relevant Social History: None Present Medications: see Short Stay Collaborative assessment Medical History: Significant History (Obesity, IBS, restless leg syndrome, anxiety disorder, depression) History of Previous Operations: No relevant previous surgery Allergies: Allergies Allergy/AdvReac Type Severity Reaction Status Date / Time glipizide AdvReac Severe chest pains Verified 06/25/21 09:08 Review of Systems Sugical H&P ROS: Negative: Constitution, Cardiovascular, Respiratory, Neurological, Psychiatric, Hem-Onc, Allergic/Immunologic, Gastrointestinal, Genitourinary, Musculoskeletal, Integumentary, Endocrine and Eyes/Ears/Nose/Throat Exam Surgical H&P Exam: Normal: HEENT, Normal: Heart, Normal: Lungs, Normal: Extr emities, Normal: Abdomen, Normal: Skin and Normal: Neurological Plan Diagnosis/Plan: Unchanged I have reviewed the history and physical and performed a pertinent physical examination on my patient. No changes have occurred unless specified.
--- NOTE | 2021-08-01 10:38 | W.PM.OPN ---
Operative Note Operative Note Date of Service: 08/01/21 Narrative: Preop diagnosis: Internal external hemorrhoids with pain and bleeding Postop diagnosis: The same Procedure: Exam under anesthesia, hemorrhoidectomy x1 column Surgeon: Naseem Andrade MD Patient is a 31 year female with a long history of frequent swelling, pain, and bleeding with hemorrhoids. She was seen in the office and was noted to have moderate-sized internal external hemorrhoidal column on the left side. Wanted to proceed with hemorrhoidectomy. She understood the technique of the procedure. She was aware of the risks, benefits, and alternatives . She was brought to the operating room. He was placed in prone erika-knife position under general anesthesia via LMA. The buttocks were retracted with wide tape laterally. The perianal area was prepped and draped in the usual sterile fashion. A surgical time-out was done. The patient received Cefotan 2 g IV preoperatively . I infiltrated the perianal area with lidocaine 1%. xamination of the anal orifice revealed a moderate-sized external hemorrhoid on the left. I inserted a Austen Riggins retractor. I examined the anal canal circumferentially. Again this hemorrhoidal column on the left was noted to be a mix of internal and external. There were no other lesions. I applied a Huntley grasper at the hemorrhoidal column to retract this. I made a figure of 8 stitch at its pedicle using chromic 3-0. I then made an incision around this hemorrhoidal column to the perianal skin using blade 15. I excised this hemorrhoidal column above the plane of sphincters along this incision using Metzenbaum scissors. I then closed this incision with a running chromic 3-0 stitch. Additional hemostatic [id number] sutures were also placed for oozing areas. Once hemostasis was ensured, I infiltrated the perianal area with Marcaine 0.5% for postop analgesia. The procedure was then completed . The patient tolerated the procedure well. There were no complications noted. Initial and final counts of sponges and instruments were correct. Estimated blood loss about 30 cc . The patient was extubated without difficulty and transferred to the recovery room with stable vital signs.
[2021-08-01] MEDS: oxyCODONE HCl Immed Release 5 MG TABLET PO (11:03)
[2021-08-01] MEDS: Acetaminophen 325 MG TABLET 650 MG PO (11:03)
[2021-08-01] MEDS: fentaNYL citrate/PF 100 MCG/2 ML VIAL 50 MCG IVPUSH (11:08)
== END 2021-08-01 12:02 | disposition home or self-care (01) ==
PROVIDERS: Nurse Practitioner; Visit Provider Surgery
PROC: (CPT 46255; principal; 2021-08-01 10:10)
DX: K64.8 Other hemorrhoids (principal); K62.5 Hemorrhage of anus and rectum; F33.2 Major depressive disorder, recurrent severe without psychotic features; E13.9 Other specified diabetes mellitus without complications; F41.1 Generalized anxiety disorder; Z79.84 Long term (current) use of oral hypoglycemic drugs; Z79.899 Other long term (current) drug therapy
CPT/HCPCS: 46255; 81025; 82947; 88304; J1100; J1885; J2250; J2405; J3010

== ENCOUNTER → 2021-08-14 11:07 | Outpatient (BNVA) | payer OTHER, SELFPAY | PROVIDERS: Referring Provider Internal Medicine; Visit Provider Surgery | DX: K64.8 Other hemorrhoids (principal); E11.9 Type 2 diabetes mellitus without complications; F33.2 Major depressive disorder, recurrent severe without psychotic features; F41.1 Generalized anxiety disorder; Z98.890 Other specified postprocedural states | CPT/HCPCS: 99212 ==

== ENCOUNTER → 2021-08-18 10:11 | Outpatient (REF) | payer OTHER, SELFPAY | LOC: HO.SL 10:11 | PROVIDERS: PCP Internal Medicine; Visit Provider Nurse Practitioner Family | DX: Z13.89 Encounter for screening for other disorder (principal) ==

== ENCOUNTER 2021-08-28 12:43 | Emergency (ER) | payer OTHER, SELFPAY ==
--- NOTE | ~2021-08-28 | XR_ITS ---
EXAMINATION: XR CHEST CLINICAL INFORMATION: Chest pain, shortness of breath COMPARISON: None TECHNIQUE: 2 views of the chest were obtained. FINDINGS: Bilateral low lung volumes. Slight elevation the right hemidiaphragm, nonspecific. No pneumothorax. Trachea is midline. Cardiomediastinal silhouette is not enlarged. No large pleural effusion. Osseous structures are intact. Soft tissues unremarkable. XR/XR chest 2V IMPRESSION: No acute cardiopulmonary process.
[2021-08-28 13:32] VITALS: BP 120/94; PULSE 107; RESP 20; TEMP 37.1; O2SAT 96; BMI 30.2
[2021-08-28 14:00] VITALS: BP 117/77; PULSE 94; RESP 19; O2SAT 97
--- NOTE | 2021-08-28 14:05 | ECG_ITS ---
Test Reason : Upper respiratory symptoms/ painful breathing Blood Pressure : / mmHG Vent. Rate : 092 BPM Atrial Rate : 092 BPM P-R Int : 144 ms QRS Dur : 094 ms QT Int : 366 ms P-R-T Axes : 033 029 025 degrees QTc Int : 452 ms Normal sinus rhythm Normal ECG No previous ECGs available Referred By: Suri Oconnell Electronically Signed By:SHAYNE DENG MD
[2021-08-28 14:55] VITALS: O2SAT 97
--- NOTE | 2021-08-28 15:06 | ED_ITS ---
HPI - Chest Pain General Chief Complaint: Upper Respiratory Symptoms Stated Complaint: COVID+/painful breathing Time Seen by Provider: 08/28/21 13:50 Source: patient Mode of arrival: ambulatory Limitations: no limitations History of Present Illness HPI narrative: Patient reports that she tested positive for COVID-19 10 days ago on 08/19/2019 she took a home test at this time because she had a severe headache unrelieved with medications. She then developed upper respiratory symptoms that felt like a sinus infection , repeated another test 3 days ago on 08/25/2021 which continue to be positive. She reports yesterday developing pain over her epigastrium, over her mid lower chest that feels worse weekly breathing, continues to have associated headache and some mild lightheadedness. She does report that at times the pain does improve after eating. Denies fevers, chills, nausea, vomiting, diarrhea, constipation, dysuria urinary frequency, possibility of . Denies personal history of DVT / PE, cancer, tobacco usage, oral contraceptive usage Related Data Previous Rx's Medication Instructions Recorded blood sugar diagnostic (Blood #100 ea 09/16/20 Glucose Test) blood-glucose meter (Blood Glucose #1 ea 09/16/20 Monitoring) lancets 28 gauge (FreeStyle #100 ea 09/16/20 Lancets) hydrocortisone 1 %-pramoxine 1 % 1 appl GA QID PRN #10 g 04/30/21 rectal foam (Proctofoam HC) metformin 500 mg tablet,extended 1,000 mg PO DAILY 90 Days #180 tab 06/03/21 release 24hr gabapentin 100 mg capsule 100 mg PO BEDTIME #30 cap 06/25/21 docusate sodium 100 mg capsule 100 mg PO BID #60 cap 08/01/21 (Colace) ibuprofen 600 mg tablet 600 mg PO Q6H PRN #30 tab 08/01/21 oxycodone-acetaminophen 5 mg-325 1 tab PO Q4-6H PRN #30 tab 08/01/21 mg tablet (Percocet) Allergies Allergy/AdvReac Type Severity Reaction Status Date / Time glipizide AdvReac Severe chest pains Verified 08/28/21 13:37 guaifenesin [From Mucinex] AdvReac Severe Chest Pain Verified 08/28/21 13:38 Review of Systems Review of Systems: Constitutional : No Weight loss, No Fever, No Chills ENT/Mouth :? No sore throat, No Rhinorrhea Eyes: No Eye Pain, No Swelling Cardiovascular : pos Chest Pain, no SOB, no Dyspnea on Exertion, No Orthopnea, No Edema, No Palpitations Respiratory : No Cough, No Sputum Gastrointestinal : no Nausea, No Vomiting, No Diarrhea, No abdominal Pain, No Hematochezia, No Melena Genitourinary : No Dysuria, No Urinary Frequency Musculoskeletal : No joint pain, No Myalgias, No Joint Swelling Skin : No Skin Lesions, No rash Neuro : No Weakness, No Numbness, No Dizziness, No Headache Psych : No Anxiety/Panic, No Depression Heme/Lymph: No Bruising, No Lymphadenopathy Endocrine : No Polyuria, No Polydipsia Yes all other systems are reviewed and are negative [facility] Past Medical History Attestation statement: The following information was validated with the patient. 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, managed as type 2 Elevated dehydroepiandrosterone sulfate level Generalized anxiety disorder Hemorrhoids with complication Surgical History History of hemorrhoidectomy History of tonsillectomy Family History Family History Father Diabetes Other Mental health disorder Substance use disorder Social History Social History Housing: Condominium Alcohol intake: never Patient Tobacco Use Status: Never used Tobacco Current occupation: stay at home mom Sexual orientation: Straight/Heterosexual Gender identity: Female Physical Exam Vital Signs: Vital Signs: Last Vital Signs Temp 98.8 F 08/28/21 13:32 Pulse 94 08/28/21 14:00 Resp 19 08/28/21 14:00 BP 117/77 08/28/21 14:00 Pulse Ox 97 08/28/21 14:55 BMI result Body Mass Index 30.2 Vital signs have been reviewed and appeared to be correct. Blood pressure normal.? initial documented tachycardia 107, improved to 94..? Respiration rate normal. Temperature normal.? Oxygen saturation normal. Appearance: Alert.?Oriented to person, place and time. No acute distress.?Nor mal affect. Eyes: Pupils equal, round and reactive to light.? ENT: Pharynx normal.?? Neck: Normal inspection.? Neck supple.?? CVS: Heart sounds normal. Normal heart rate and rhythm.? Pulses normal.?? Respiratory: No respiratory distress.? Lung sounds clear to auscultation bilaterally but diminished at the bases?? Abdomen: Soft and non-tender. Normoactive bowel sounds. No pulsatile mass.?? Skin: Skin warm and dry.? Normal skin color.? ? Extremities: No lower extremity edema.? No calf ttp? Neuro: Moves all extremities spontaneously. Sensation intact bilaterally. CN II- XII intact. No focal neuro deficits. Ambulates with normal steady gait. Course Course Course Narrative: patient is a 31-year-old female with a past medical history of obesity, diabetes, complex ovarian cyst, generalized anxiety disorder, depression PTSD, irritable bowel syndrome. Presenting to the emergency department for evaluation of substernal / epigastric pain, reproducible to deep inspiration, with current COVID-19 infection. Will obtain CBC to evaluate for leukocytosis/ anemia, CMP to evaluate for abnormal electrolytes /abnormal renal function/ abnormal hepatic function, EKG and troponin to evaluate for ischemia/ACS. Chest x-ray to evaluate for consolidation/ infiltrate/ mass/ pulmonary congestion. Urinalysis to evaluate for infection or . Setting of COVID-19 infection, will obtain D-dimer to evaluate for pulmonary embolism. additionally reports some past heartburn requiring tums, and she does report that the pain does improve some after eating, will medicate with Tylenol in addition to Maalox with lidocaine viscous and famotidine Reevaluation(s) Reevaluation #1: CBC overall unremarkable. mildly elevated AST and ALT 42 and 45 respectively, consistent with prior labs. Negative Suresh sign on exam, mild palpable te nderness of the epigastrium and right upper quadrant, with lipase 98. no acute nausea or vomiting, is tolerating p.o. intake without complication. HCG negative. EKG reveals normal sinus rhythm, Troponin <3.5, HEART score 0, unlikely ACS. chest x-ray reveals no pneumothorax, consolidation, infiltrate, pleural effusion. discussed findings with patient, suspect symptoms to be most consistent with pleuritic chest pain in the setting of COVID- 19 infection, advised anti-inflammatories, rest, follow-up with primary care provider in 1-3 days, and return to the emergency department with any new or worsening symptoms or concerns. All questions were answered and patient is agreeable for discharge home Time: 16:57 MDM - Chest Pain Medical Records Data Attestation: I reviewed the patient's medical records. Lab Data Attestation: I reviewed the patient's lab results. Result diagrams: 08/28/21 15:11 08/28/21 15:11 Labs: Lab Results 08/28/21 08/28/21 08/28/21 Range/Units 15:11 15:11 15:11 WBC 10.6 (4.8-10.8) X10*3/uL RBC 4.20 (4.20-5.50) X10*6/uL Hgb 12.0 (12.0-16.0) g/dl Hct 36.0 L (37.0-47.0) % MCV 85.7 (80.0-98.0) fL MCH 28.6 (27.0-33.0) pg MCHC 33.3 (31.0-35.0) g/dl RDW 12.7 (11.0-16.0) % Plt Count 363 (160-400) X10*3/uL MPV 10.0 (9.4-12.3) fL Immature Gran % (Auto) 0.9 H (0.0-0.4) % Neut % (Auto) 66.9 (45-73) % Lymph % (Auto) 25.0 (20-40) % Perkins % (Auto) 5.3 (2-11) % Eos % (Auto) 1.5 (0-4) % Baso % (Auto) 0.4 (0-2) % Lymph # (Auto) 2.7 (1.2-4.9) X10*3/uL Perkins # (Auto) 0.6 (0.1-1.2) X10*3/uL Eos # (Auto) 0.2 (0.0-0.4) X10*3/uL Baso # (Auto) 0.0 (0.0-0.2) X10*3/uL Abs Immat Gran (auto) 0.10 H (0.00-0.03) X10*3/uL Absolute Neuts (auto) 7.1 (2.0-8.3) x10*3/uL Absolute Nucleated RBC 0.000 (0.0-0.012) X10*3/uL Nucleated RBC % (auto) 0.0 (0.0-0.2) /100WBC D-Dimer High Sensitivty NG/ML Sodium 139 (135-145) mmol/L Potassium 4.7 (3.3-5.1) mmol/L Chloride 101 (96-108) mmol/L Carbon Dioxide 25 (22-29) mmol/L Anion Gap 18 (12-20) BUN 14 (9-16) mg/dL Creatinine 0.55 (0.5-1.4) mg/dL Estim Creat Clear Calc 139.1 Estimated GFR > 60 Random Glucose 132 H (60-115) mg/dL Calcium 9.9 (8.4-10.2) mg/dL Magnesium 1.8 (1.6-2.6) mg/dL Total Bilirubin 0.7 (0.0-1.0) mg/dL AST 42 H (5-31) U/L ALT 45 H (0-31) U/L Alkaline Phosphatase 78 D (39-117) U/L Troponin I High Sens < 3.5 (<3.5-17.0) ng/L Total Protein 7.2 (6.5-8.0) g/dL Albumin 4.1 (3.5-5.0) g/dL Lipase 98 H (8-78) U/L Beta HCG, Quant < 2 mIU/mL 08/28/21 Range/Units 15:11 WBC (4.8-10.8) X10*3/uL RBC (4.20-5.50) X10*6/uL Hgb (12.0-16.0) g/dl Hct (37.0-47.0) % MCV (80.0-98.0) fL MCH (27.0-33.0) pg MCHC (31.0-35.0) g/dl RDW (11.0-16.0) % Plt Count (160-400) X10*3/uL MPV (9.4-12.3) fL Immature Gran % (Auto) (0.0-0.4) % Neut % (Auto) (45-73) % Lymph % (Auto) (20-40) % Perkins % (Auto) (2-11) % Eos % (Auto) (0-4) % Baso % (Auto) (0-2) % Lymph # (Auto) (1.2-4.9) X10*3/uL Perkins # (Auto) (0.1-1.2) X10*3/uL Eos # (Auto) (0.0-0.4) X10*3/uL Baso # (Auto) (0.0-0.2) X10*3/uL Abs Immat Gran (auto) (0.00-0.03) X10*3/uL Absolute Neuts (auto) (2.0-8.3) x10*3/uL Absolute Nucleated RBC (0.0-0.012) X10*3/uL Nucleated RBC % (auto) (0.0-0.2) /100WBC D-Dimer High Sensitivty < 150 NG/ML Sodium (135-145) mmol/L Potassium (3.3-5.1) mmol/L Chloride (96-108) mmol/L Carbon Dioxide (22-29) mmol/L Anion Gap (12-20) BUN (9-16) mg/dL Creatinine (0.5-1.4) mg/dL Estim Creat Clear Calc Estimated GFR Random Glucose (60-115) mg/dL Calcium (8.4-10.2) mg/dL Magnesium (1.6-2.6) mg/dL Total Bilirubin (0.0-1.0) mg/dL AST (5-31) U/L ALT (0-31) U/L Alkaline Phosphatase (39-117) U/L Troponin I High Sens (<3.5-17.0) ng/L Total Protein (6.5-8.0) g/dL Albumin (3.5-5.0) g/dL Lipase (8-78) U/L Beta HCG, Quant mIU/mL Imaging Data Chest x-ray: Radiologist's impression: FINDINGS: Bilateral low lung volumes. Slight elevation the right hemidiaphragm, nonspecific. No pneumothorax. Trachea is midline. Cardiomediastinal silhouette is not enlarged. No large pleural effusion. Osseous structures are intact. Soft tissues unremarkable. XR/XR chest 2V IMPRESSION: No acute cardiopulmonary process. ECG Data ECG #1: ECG interpretation date: 08/28/21 ECG interpretation time: 16:29 Prior ECG tracings: not available for review Interpretation: Rate: 92 Rhythm:? normal sinus rhythm [place]:? normal Normal P waves.? Normal ERLIN.?? Normal QRS complex.?? ST T wave :?? no ST elevation, no ST depression, no T-wave inversion qTC: 452 prior studies:? none available for review The study has been interpreted contemporaneously by me. Discharge Plan Discharge Clinical Impression: COVID-19, Chest pain, pleuritic Patient Disposition: Home, Self-Care Instructions: Chest Pain (ED), COVID-19 (Coronavirus Disease 2019) (ED) Additional Instructions: You can take ibuprofen 200 mg, 3 tablets (600mg) every 6-8 hours as needed for pain, in addition to Tylenol 500 mg, 2 tablets (1,000mg) every 4-6 hours as needed for pain, but not to exceed 3 doses daily (3,000mg). Please follow-up with your primary care provider and 1-3 days. Return to the emergency department with any new or worsening symptoms or concerns. Prescriptions: No Action (DME) blood-glucose meter [Blood Glucose Monitoring] Kit See Rx Instructions .ROUTE .MEDSUPPLY Qty: 1 0RF Rx Instructions: Free Style glucose meter-patient to check blood sugar once daily (DME) Blood Glucose Test Strip See Rx Instructions .ROUTE .MEDSUPPLY Qty: 100 0RF Rx Instructions: Free Style test strips-patient to check blood sugar once daily (DME) lancets [FreeStyle Lancets] 28 gauge misc See Rx Instructions .ROUTE .MEDSUPPLY Qty: 100 0RF Rx Instructions: patient to check blood sugar once daily metformin 500 mg tablet extended release 24hr 1,000 mg PO DAILY 90 Days Qty: 180 0RF docusate sodium [Colace] 100 mg capsule 100 mg PO BID Qty: 60 2RF oxycodone-acetaminophen [Percocet] 5-325 mg tablet 1 tab PO Q4-6H PRN (Reason: pain, severe) Qty: 30 0RF ibuprofen 600 mg tablet 600 mg PO Q6H PRN (Reason: pain) Qty: 30 0RF Proctofoam HC 1-1 % foam 1 appl GA QID PRN (Reason: hemorrhoids) Qty: 10 0RF gabapentin 100 mg capsule 100 mg PO BEDTIME Qty: 30 2RF Interventions: ED Discharge Assessment Last Done: 08/28/21 17:25 Discharge Date/Time: 08/28/21 17:26
[2021-08-28] MEDS: Acetaminophen 325 MG TABLET 975 MG PO (15:11)
[2021-08-28] MEDS: Magnesium Hydrox/Alum Hydrox 30 ML ORAL.SUSP PO (15:11)
[2021-08-28] MEDS: Lidocaine HCl Viscous 2 % 15 ML SOLUTION MUCOUS MEM (15:11)
[2021-08-28] MEDS: Famotidine 20 MG TABLET PO (15:12)
--- NOTE | 2021-08-28 15:16 | PC.NURSE ---
pt aq&ox3, vss, cardiac cath lab manager applied - NSR, 20G IV placed right AV, labs drawn, medicated per provider order. no new orders at this time.
[2021-08-28 15:29] LABS: MANUAL DIFF FLAG NO
[2021-08-28 15:33] LABS: Basophils Percent Auto 0.4 % (0-2); Eosinophils Absolute Auto 0.2 X10*3/uL (0.0-0.4); Eosinophils Percent Auto 1.5 % (0-4); Imm Gran Pct Auto 0.9 % (0.0-0.4); Lymphocytes Absolute Auto 2.7 X10*3/uL (1.2-4.9); Mean Corpuscular HGB Conc 33.3 g/dl (31.0-35.0); Mean Corpuscular Hemoglobin 28.6 pg (27.0-33.0); Mean Corpuscular Volume 85.7 fL (80.0-98.0); Monocytes Absolute Auto 0.6 X10*3/uL (0.1-1.2); Monocytes Percent Auto 5.3 % (2-11); Neutrophils Absolute Auto 7.1 x10*3/uL (2.0-8.3); Neutrophils Percent Auto 66.9 % (45-73); Platelet Count 363 X10*3/uL (160-400); Red Cell Distribution Width 12.7 % (11.0-16.0); White Blood Count 10.6 X10*3/uL (4.8-10.8)
[2021-08-28 15:45] LABS: D Dimer High Sensitivity < 150 NG/ML
[2021-08-28 15:56] LABS: Alanine Aminotransferase 45 U/L (0-31); Albumin Level 4.1 g/dL (3.5-5.0); Alkaline Phosphatase 78 U/L (39-117); Anion Gap 18 (12-20); Aspartate Amino Transferase 42 U/L (5-31); Bilirubin Total 0.7 mg/dL (0.0-1.0); Blood Urea Nitrogen 14 mg/dL (9-16); Calcium 9.9 mg/dL (8.4-10.2); Carbon Dioxide 25 mmol/L (22-29); Chloride 101 mmol/L (96-108); Creatinine Clr Calc Pharmacy 139.1; Estimated Glomerular Filt Rate > 60; Glucose Random 132 mg/dL (60-115); Lipase 98 U/L (8-78); Magnesium 1.8 mg/dL (1.6-2.6); Potassium 4.7 mmol/L (3.3-5.1); Sodium 139 mmol/L (135-145); Total Protein 7.2 g/dL (6.5-8.0); Troponin-I High Sensitivity < 3.5 ng/L (<3.5-17.0)
[2021-08-28 15:59] LABS: HCG Quantitative < 2 mIU/mL
== END 2021-08-28 17:26 | disposition home or self-care (01) ==
PROVIDERS: Nurse Practitioner Family; Emergency Provider Student in an Organized Health Care Education/Training Program; PCP Internal Medicine
DX: U07.1 COVID-19 (principal); R07.81 Pleurodynia; Z79.899 Other long term (current) drug therapy
CPT/HCPCS: 36415; 71046; 80053; 83690; 83735; 84484; 84702; 85025; 85379; 93005; 99283; 99285

== ENCOUNTER → 2021-09-15 12:23 | Outpatient (REF) | payer OTHER, SELFPAY | LOC: HO.SL 12:23 | PROVIDERS: PCP Internal Medicine; Visit Provider Nurse Practitioner Family | DX: Z13.89 Encounter for screening for other disorder (principal) ==

== ENCOUNTER → 2021-10-01 13:06 | Outpatient (BNVA) | payer OTHER, SELFPAY | PROVIDERS: PCP Internal Medicine; Visit Provider Nurse Practitioner Family | DX: E66.09 Other obesity due to excess calories (principal); R06.83 Snoring; R40.0 Somnolence; R53.83 Other fatigue; Z68.30 Body mass index [BMI] 30.0-30.9, adult | CPT/HCPCS: 99212 ==

== ENCOUNTER → 2021-12-07 20:19 | Outpatient (REF) | payer OTHER, SELFPAY | LOC: HO.SL 20:19 | PROVIDERS: Visit Provider Nurse Practitioner Family | DX: E66.09 Other obesity due to excess calories (principal) | CPT/HCPCS: 95810 ==

== ENCOUNTER 2021-12-29 12:49 | Outpatient (REF) | payer OTHER, SELFPAY ==
[2021-12-29 14:17] LABS: C Reactive Protein 0.36 mg/dL (< or = 0.50)
[2021-12-29 14:42] LABS: Thyroid Stimulating Hormone 2.62 uIU/mL (0.32-4.0)
[2021-12-29 14:56] LABS: Erythrocyte Sedimentation Rate 8 MM/HR (0-20)
[2021-12-29 17:43] LABS: Folate > 20.0 ng/mL (> or = 4.0); Vitamin B12 339 pg/mL (200-900)
[2021-12-31 23:11] LABS: Transglutaminase IgA <1.0 U/mL
[2022-01-02 17:07] LABS: Vitamin D 25-OH, D2 <4 ng/mL; Vitamin D 25-OH, D3 28 ng/mL; Vitamin D 25-OH, Total 28 ng/mL (30-100)
[2022-01-06 06:07] LABS: Endomysial IgA Antibody Negative (Negative)
== END 2021-12-29 12:50 | disposition home or self-care (01) ==
LOC: HO.HMGCLDS 12:49
PROVIDERS: Absent Provider Physician Assistant; PCP Internal Medicine; Visit Provider Nurse Practitioner Family
DX: K58.2 Mixed irritable bowel syndrome (principal); R53.83 Other fatigue; F41.1 Generalized anxiety disorder; Z12.11 Encounter for screening for malignant neoplasm of colon; E55.9 Vitamin D deficiency, unspecified; R53.82 Chronic fatigue, unspecified; F32.A Depression, unspecified
CPT/HCPCS: 36415; 82306; 82607; 82746; 84443; 85652; 86140; 86231; 86364; 99202; 99212

== ENCOUNTER 2022-01-05 08:57 | Outpatient (REF) | payer OTHER, SELFPAY ==
[2022-01-05 11:59] LABS: CDiff Gene PCR POSITIVE (Negative)
[2022-01-05 12:38] LABS: CDIFF Internal ctrl Dots and bkg OK (V); CDiff Toxin Negative (Negative)
[2022-01-10 08:47] LABS: Fecal Fat Qualitative NORMAL (NORMAL)
[2022-01-12 00:43] LABS: Calprotectin, Fecal 10 mcg/g
== END 2022-01-05 08:58 | disposition home or self-care (01) ==
LOC: HO.HMGCLNP 08:57
PROVIDERS: PCP Internal Medicine; Visit Provider Physician Assistant
DX: R19.7 Diarrhea, unspecified (principal); K58.0 Irritable bowel syndrome with diarrhea
CPT/HCPCS: 82705; 83993; 87324; 87493

== ENCOUNTER 2022-02-23 08:25 | Outpatient (REF) | payer OTHER, SELFPAY ==
[2022-02-23 11:22] LABS: MANUAL DIFF FLAG NO
[2022-02-23 11:51] LABS: Basophils Percent Auto 0.5 % (0-2); Eosinophils Absolute Auto 0.1 X10*3/uL (0.0-0.4); Eosinophils Percent Auto 1.4 % (0-4); Hematocrit 37.2 % (37.0-47.0); Hemoglobin 12.4 g/dl (12.0-16.0); Imm Gran Abs Auto 0.04 X10*3/uL (0.00-0.03); Imm Gran Pct Auto 0.5 % (0.0-0.4); Lymphocytes Absolute Auto 3.1 X10*3/uL (1.2-4.9); Lymphocytes Percent Auto 35.4 % (20-40); Mean Corpuscular HGB Conc 33.3 g/dl (31.0-35.0); Mean Corpuscular Volume 87.1 fL (80.0-98.0); Mean Platelet Volume 10.7 fL (9.4-12.3); Monocytes Absolute Auto 0.5 X10*3/uL (0.1-1.2); Monocytes Percent Auto 6.1 % (2-11); Neutrophils Absolute Auto 4.9 x10*3/uL (2.0-8.3); Neutrophils Percent Auto 56.1 % (45-73); Platelet Count 346 X10*3/uL (160-400); Red Blood Count 4.27 X10*6/uL (4.20-5.50); Red Cell Distribution Width 13.1 % (11.0-16.0); White Blood Count 8.7 X10*3/uL (4.8-10.8)
[2022-02-23 12:05] LABS: Estimated Average Glucose 140 mg/dL; Hemoglobin A1C 150.4837 umol/L; Hemoglobin A1c % 6.5 %
[2022-02-23 12:09] LABS: Alanine Aminotransferase 25 U/L (0-31); Albumin Level 4.5 g/dL (3.5-5.0); Alkaline Phosphatase 57 U/L (39-117); Anion Gap 17 (12-20); Aspartate Amino Transferase 18 U/L (5-31); Blood Urea Nitrogen 12 mg/dL (9-16); Calcium 9.2 mg/dL (8.4-10.2); Carbon Dioxide 21 mmol/L (22-29); Chloride 103 mmol/L (96-108); Cholesterol 239 mg/dL; Estimated Glomerular Filt Rate > 60; Glucose Fasting 167 mg/dL (60-99); HDL Cholesterol 68 mg/dL; LDL Cholesterol Calculated 130 mg/dl; Sodium 137 mmol/L (135-145); Total Protein 7.2 g/dL (6.5-8.0); Triglycerides 209 mg/dL
[2022-02-23 12:34] LABS: TSH reflex Free T4 2.93 uIU/mL (0.32-4.0)
== END 2022-02-23 08:26 | disposition home or self-care (01) ==
LOC: HO.HMGCLDS 08:25
PROVIDERS: PCP Internal Medicine; Visit Provider Internal Medicine
DX: E13.9 Other specified diabetes mellitus without complications (principal); E66.09 Other obesity due to excess calories; L65.9 Nonscarring hair loss, unspecified
CPT/HCPCS: 36415; 80053; 80061; 83036; 84443; 85025

== ENCOUNTER 2022-12-08 08:36 | Outpatient (AMB) | payer OTHER, SELFPAY ==
--- NOTE | 2022-12-08 08:40 | A.OFFPC_ITS ---
Vital Signs 12/08/22 08:44 Height 5 ft 2 in Weight 161 lb 4 oz BMI 29.5 BP 108/62 Blood Pressure Location Rt brachial Position Sitting Pulse 94 Pulse Source Pulse Oximeter Pulse Oximetry (%) 98 Oxygen Delivery Method Room Air Intake Visit Reasons: Light flashes-vision Allergies glipizide Adverse Reaction (Severe, Verified 12/08/22 08:45) chest pains guaifenesin [From Mucinex] Adverse Reaction (Severe, Verified 12/08/22 08:45) Chest Pain Medication List - Last Reconciled 12/08/22 by Evan Costa MD blood sugar diagnostic (Blood Glucose Test strips) Free Style test strips- patient to check blood sugar once daily blood-glucose meter (Blood Glucose Monitoring kit) Free Style glucose meter- patient to check blood sugar once daily cholecalciferol (vitamin D3) 25 mcg PO DAILY 30 days lancets (FreeStyle Lancets) patient to check blood sugar once daily metformin ER 1,000 mg (2 x 500 mg) PO DAILY 90 days prenat.vits,abdirahman,[id number] 1 tab PO DAILY pyridoxine (vitamin B6) 25 mg PO TID Tobacco use date assessed: 12/08/22 Dental Screening Dental Screen Date: 12/08/22 Did you have a dental visit in the last 12 months?: No Did you have a dental problem in the last 6 months where you did not have access to dental care?: No Was dental information given to patient?: No HPI Light flashes-vision HPI Details Patient is 32-year-old female who was last seen March of last year did not come in for follow-up after that Patient is diabetic and tells me that she has a retinal disorder she has been seeing used equipment sales representative for her diabetic exam. She sees endocrinology for the diabetes management and is on metformin. Patient recently delivered a baby girl her last A1c was between 6 and 7. For the past few days patient has been having flashes of light in her right eye. She called her used equipment sales representative who directed her to Ophthalmology through PCP that is why she is here. She does have a history of migraines as well but does not have headache at this time. On examination her peripheral vision is intact people are reactive extraocular movement intact on visual inspection there is no abnormalities. I have placed an urgent referral for patient to see an Ophthalmology. Patient was directed to emergency room in case she start having visual changes. 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 Generalized anxiety disorder Hemorrhoids with complication Surgical History History of hemorrhoidectomy History of tonsillectomy Family History Father Diabetes Other Mental health disorder Substance use disorder Social History Household Members Other:: - 2 kids Housing: Condominium Alcohol intake: never Patient Tobacco Use Status: Never used Tobacco e-Cigarette/Vaping Use: Never Used service: No Current occupational status: unemployed Current occupation: stay at home mom Sexual orientation: Straight/Heterosexual Gender identity: Female Cognitive needs: No Hearing needs: No Vision needs: Yes Female Reproductive History Menstrual Age of Menarche: 9 Questionnaire PHQ-9 Over the last 2 weeks, how often have you been bothered by any of the following problems? 1. Little interest or pleasure in doing things: not at all 2. Feeling down, depressed, or hopeless: not at all 3. Trouble falling or staying asleep, or sleeping too much: not at all 4. Feeling tired or having little energy: not at all 5. Poor appetite or overeating: not at all 6. Feeling bad about yourself - or that you are a failure or have let yourself or your family down: not at all 7. Trouble concentrating on things, such as reading the newspaper or watching television: not at all 8. Moving or speaking so slowly that other people could have noticed. Or the opposite - being so fidgety or restless that you have been moving around a lot more than usual: not at all 9. Thoughts that you would be better off or of hurting yourself in some way: not at all Total score: 0 Depression Screening Interpretation: Negative 11209 - PHQ-9 Billing: Yes Source: Developed by Drs. David Martins, Leonor Seaman, Misbah Weber and colleagues, with an educational clay from [employer]. Thrive Questionnaire Date Thrive assessed: 12/08/22 I am a: Patient What is your living situation today?: I have a steady place to live Within the past 12 months, did the food you bought not last and you didn't have the money to get more?: Never true Within the past 12 months, did you worry whether your food would run out before you got money to buy more?: Never true Do you have trouble paying for medicines?: No Do you have trouble getting transportation to medical appointments?: No Do you have trouble paying your heating and electricity bill?: No Do you have trouble taking care of your child, family member or friend?: No Do you have trouble with day-to-day activities such as bathing, preparing meals, shopping, managing finances, etc.?: No Are you currently unemployed and looking for a job?: No Are you interested in more education?: No AUDIT C Alcohol Use Questionnaire (AUDIT-C) 1. How often do you have a drink containing alcohol?: Never 3. How often do you have six or more drinks on one occasion?: Never Total Score: 0 Score Reviewed/Action Taken: Yes ALON-7 AMB Questionnaire ALON-7 Date ALON - 7 assessed: 12/08/22 Feeling nervous, anxious, or on edge: 0 = Not at all Not being able to stop or control worryin = Several days Worrying too much about different things: 1 = Several days Trouble relaxin = Not at all Being so restless that it is hard to sit still: 0 = Not at all Becoming easily annoyed or irritable: 1 = Several days Feeling afraid as if something awful might happen: 0 = Not at all Total ALON-7 score (0-4 normal; 5-9 mild; 10-14 moderate; 15-21 severe): 3 Source: Developed by Drs. David Matrins, Leonor Seaman, Misbah Weber and colleagues, with an educational clay from [employer]. ALON-7 Assessment Billing ALON-7 Assessment Tool: ALON-7 Assessment 21906 Review of Systems Const Denies chills and Denies fever(s) ENT Denies epistaxis and Denies nasal discharge Card Denies chest pain Resp Denies chest congestion, Denies cough and Denies hemoptysis GI Denies diarrhea and Denies nausea Skin/Breast Denies rash Neuro Reports no additional complaints Psych Reports no additional complaints Endo Reports no additional complaints Physical exam (Primary Care) Vital Signs: Last Vital Signs Pulse 94 12/08/22 08:44 BP 108/62 12/08/22 08:44 Pulse Ox 98 12/08/22 08:44 Oxygen Delivery Method Room Air 12/08/22 08:44 BMI result Body Mass Index 29.5 Tobacco/Smoking Status: Tobacco use Status Tobacco use date assessed 12/08/22 12/08/22 08:47 Patient Tobacco Use Status Never used Tobacco 12/08/22 08:41 e-Cigarette/Vaping Use Never Used 12/08/22 08:41 PHQ-9: PHQ-9 Score PHQ-9: Total score 0 12/08/22 08:47 Depression Screening Interpretation: Negative Thrive Assessment: Date of Thrive Assessment Date Thrive assessed 12/08/22 12/08/22 08:47 Const General: cooperative, comfortable and no acute distress Orientation/consciousness: patient oriented x3 HENMT Head: Yes normocephalic Eyes General: appearance normal, both eyes and all related structures Neck Neck: Yes supple Resp Effort & Inspection: normal respiratory effort, no cough and no stridor Cardio Rhythm: regular rhythm Heart sounds: S1 normal heart sound present and S2 normal heart sound present Skin General skin exam: turgor normal Neuro General: patient oriented x3, tone normal and moves all extremities Extrem Right lower extremity: no edema Left lower extremity: no edema Assessment and Plan Assessment & Plan (1) 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 She sees endocrinology for the diabetes management and is on metformin. Patient recently delivered a baby girl her last A1c was between 6 and 7. For the past few days patient has been having flashes of light in her right eye. She called her used equipment sales representative who directed her to Ophthalmology through PCP that is why she is here. She does have a history of migraines as well but does not have headache at this time. On examination her peripheral vision is intact people are reactive extraocular movement intact on visual inspection there is no abnormalities. I have placed an urgent referral for patient to see an Ophthalmology. Patient was directed to emergency room in case she start having visual changes. 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
[2022-12-08 08:44] VITALS: BP 108/62; PULSE 94; O2SAT 98; BMI 29.5
== END 2022-12-08 10:02 | disposition home or self-care (01) ==
PROVIDERS: PCP Internal Medicine; Visit Provider Internal Medicine
DX: E11.319 Type 2 diabetes mellitus with unspecified diabetic retinopathy without macular edema (principal)
CPT/HCPCS: 99214

== ENCOUNTER 2023-02-26 14:21 | Outpatient (AMB) | payer OTHER, SELFPAY ==
[2023-02-26 14:26] VITALS: BP 102/78; PULSE 90; O2SAT 98; BMI 29.2
--- NOTE | 2023-02-26 14:26 | A.OFFPC_ITS ---
Vital Signs 02/26/23 14:26 Height 5 ft 2 in Weight 159 lb 8 oz BMI 29.2 BP 102/78 Blood Pressure Location Rt brachial Position Sitting Pulse 90 Pulse Source Pulse Oximeter Pulse Oximetry (%) 98 Oxygen Delivery Method Room Air Intake Visit Reasons: Annual PE Allergies glipizide Adverse Reaction (Severe, Verified 02/26/23 14:28) chest pains guaifenesin [From Mucinex] Adverse Reaction (Severe, Verified 02/26/23 14:28) Chest Pain Medication List - Last Reconciled 02/26/23 by Evan Costa MD blood sugar diagnostic (Blood Glucose Test strips) Free Style test strips- patient to check blood sugar once daily blood-glucose meter (Blood Glucose Monitoring kit) Free Style glucose meter- patient to check blood sugar once daily lancets (FreeStyle Lancets) patient to check blood sugar once daily metformin ER 1,000 mg (2 x 500 mg) PO DAILY 90 days prenat.vits,abdirahman,[id number] 1 tab PO DAILY Tobacco use date assessed: 02/26/23 Dental Screening Dental Screen Date: 02/26/23 Did you have a dental visit in the last 12 months?: No Did you have a dental problem in the last 6 months where you did not have access to dental care?: No Was dental information given to patient?: Patient has dentist HPI Annual PE HPI Details Patient is 33-year-old female came in today for physical examination She has small BP, that she picks up patient is right handed Complaining of tingling sensation in right upper extremity and upper back area On examination she has full range of motion in her neck without any discomfort Full range of motion in both shoulders without any discomfort I am ordering physical therapy for the patient if she continued to have symptoms I will order nerve conduction study. Diabetes mellitus: Patient is seeing endocrinology for the management Lab order placed to be done fasting BMI is 29.2 need to lose weight Flu shot was given [facility] Medical History Hemorrhoids with complication Elevated dehydroepiandrosterone sulfate level Diabetes 1.5, managed as type 2 Generalized anxiety disorder Depression, major, severe recurrence Surgical History History of hemorrhoidectomy History of tonsillectomy Family History Father Diabetes Other Mental health disorder Substance use disorder Social History Household Members Other:: - 2 kids Housing: Condominium Alcohol intake: never Patient Tobacco Use Status: Never used Tobacco e-Cigarette/Vaping Use: Never Used service: No Current occupational status: unemployed Current occupation: stay at home mom Sexual orientation: Straight/Heterosexual Gender identity: Female Cognitive needs: No Hearing needs: No Vision needs: Yes Female Reproductive History Menstrual Age of Menarche: 9 Questionnaire Thrive Questionnaire Date Thrive assessed: 12/08/22 AUDIT C Alcohol Use Questionnaire (AUDIT-C) 1. How often do you have a drink containing alcohol?: Never 3. How often do you have six or more drinks on one occasion?: Never Total Score: 0 Score Reviewed/Action Taken: Yes ALON-7 AMB Questionnaire ALON-7 Date ALON - 7 assessed: 12/08/22 Source: Developed by Drs. David Martins, Leonor Seaman, Misbah Weber and colleagues, with an educational clay from [employer]. Review of Systems Const Denies chills, Denies fever(s) and Denies headache(s) Eyes Denies blurry vision ENT Denies headache(s), Denies nasal discharge, Denies nasal obstruction, Denies odynophagia and Denies sinus pain Card Denies chest pain at rest and Denies chest pain with activity Resp Denies cough and Denies hemoptysis GI Denies diarrhea, Denies odynophagia, Denies vomiting and Denies hematemesis Reports as per HPI Musc Denies abnormal gait Skin/Breast Reports as per HPI Neuro Denies Neuro-related abnormal movements, Denies Abnormal speech present, Denies abnormal gait, Denies headache(s) and Denies Sensory deficit (Neuro) Psych Denies mood swings and Denies paranoia Endo Reports as per HPI Willard/Lymph Reports as per HPI Aller/Immun Reports as per HPI Physical exam (Primary Care) Vital Signs: Last Vital Signs Pulse 90 02/26/23 14:26 BP 102/78 02/26/23 14:26 Pulse Ox 98 02/26/23 14:26 Oxygen Delivery Method Room Air 02/26/23 14:26 BMI result Body Mass Index 29.2 Tobacco/Smoking Status: Tobacco use Status Tobacco use date assessed 02/26/23 02/26/23 14:29 Patient Tobacco Use Status Never used Tobacco 02/26/23 14:29 e-Cigarette/Vaping Use Never Used 02/26/23 14:29 Thrive Assessment: Date of Thrive Assessment Date Thrive assessed 12/08/22 02/26/23 14:29 Const General: cooperative, comfortable and no acute distress Orientation/consciousness: patient oriented x3 HENMT Head: Yes normocephalic and Yes atraumatic Eyes General: appearance normal, both eyes and all related structures Pupils: Equal, round and reactive pupils present EOM: EOMs intact bilaterally Neck Neck: Yes supple and No lymphadenopathy Thyroid: Thyroid normal Lymphatic: no lymphadenopathy noted Resp Effort & Inspection: normal respiratory effort and able to speak in complete sentences Auscultation: clear to auscultation bilaterally Cardio Heart sounds: S1 normal heart sound present and S2 normal heart sound present GI Palpation (GI): Soft to palpation and nontender Auscultation: normal bowel sounds General: Yes no CVA tenderness Back/Spine/Pelvis Back: no CVA tenderness Skin General skin exam: elasticity normal and turgor normal Neuro General: patient oriented x3 and gait normal Cranial nerves: Yes Equal, round and reactive pupils present Speech: No Abnormal speech present Sensory Exam: No Sensory deficit (Neuro) Coordination: tandem gait normal and Romberg test negative Extrem General: Yes normal exam except as noted and No edema Office Procedures Flu Questionnaire Does the patient have a severe egg allergy?: No Does the patient have severe life threatening allergies?: No Does the patient have a fever or illness today?: No Has the patient ever had Guillain-[place] Syndrome?: No Has the patient ever had any past reaction to a flu shot?: No Immunizations flu vacc [id number] 6mos up(PF) 60 mcg(15 mcgx4)/0.5 mL IM syringe Performing Provider: Evan Costa MD Performing Location: [facility] Administered by: Miguel Haley CMA on 02/26/23 15:16 Dose Route Admin Location Dispensed Lot Number Expiration Date NDC [employer] 0.5 mL IM Right Deltoid 0.5 mL [id number] 11/07/23 56290-017-52 [employer] VIS Given Date VIS Provided VIS Publication Date 02/26/23 Single Vaccine 20 Eligibility Eligibility Date Funding Source Not [facility] Eligible 02/26/23 Private Assessment and Plan Assessment & Plan (1) Encounter for general adult medical examination with abnormal findings: Code(s): Z00.01 - Encounter for general adult medical examination with abnormal findings (2) Diabetes 1.5, managed as type 2: Code(s): E13.9 - Other specified diabetes mellitus without complications (3) Strain of right trapezius muscle: Code(s): S46.811A - Strain of other muscles, fascia and tendons at shoulder and upper arm level, right arm, initial encounter Qualifiers: Encounter type: initial encounter Qualified Code(s): S46.811A - Strain of other muscles, fascia and tendons at shoulder and upper arm level, right arm, initial encounter (4) Paresthesia of right upper extremity: Code(s): R20.2 - Paresthesia of skin Plan Patient is 33-year-old female came in today for physical examination She has small BP, that she picks up patient is right handed Complaining of tingling sensation in right upper extremity and upper back area On examination she has full range of motion in her neck without any discomfort Full range of motion in both shoulders without any discomfort I am ordering physical therapy for the patient if she continued to have symptoms I will order nerve conduction study. Diabetes mellitus: Patient is seeing endocrinology for the management Pap smear through OBGYN Breast exam through OBGYN Lab order placed to be done fasting BMI is 29.2 need to lose weight Flu shot was given Orders: Orders Lipid Panel Today E13.9 - Other specified diabetes mellitus without complications, R20.2 - Paresthesia of skin, S46.811A - Strain of other muscles, fascia and tendons at shoulder and upper arm level, right arm, initial encounter, Z00.01 - Encounter for general adult medical examination with abnormal findings Vitamin B12 Today E13.9 - Other specified diabetes mellitus without complications, R20.2 - Paresthesia of skin, S46.811A - Strain of other muscles, fascia and tendons at shoulder and upper arm level, right arm, initial encounter, Z00.01 - Encounter for general adult medical examination with abnormal findings Vitamin D 25-OH (D2 and D3) Today E13.9 - Other specified diabetes mellitus without complications, R20.2 - Paresthesia of skin, S46.811A - Strain of other muscles, fascia and tendons at shoulder and upper arm level, right arm, initial encounter, Z00.01 - Encounter for general adult medical examination with abnormal findings Influenza [id number] Immunization Today Z23 - Encounter for immunization PT Evaluation and Treatment Today S46.811A - Strain of other muscles, fascia and tendons at shoulder and upper arm level, right arm, initial encounter Complete Blood Count Auto Diff Today E13.9 - Other specified diabetes mellitus without complications, R20.2 - Paresthesia of skin, S46.811A - Strain of other muscles, fascia and tendons at shoulder and upper arm level, right arm, initial encounter, Z00.01 - Encounter for general adult medical examination with abnormal findings Comprehensive [place]. Panel Fast Today E13.9 - Other specified diabetes mellitus without complications, R20.2 - Paresthesia of skin, S46.811A - Strain of other muscles, fascia and tendons at shoulder and upper arm level, right arm, initial encounter, Z00.01 - Encounter for general adult medical examination with abnormal findings Hemoglobin A1c Today E13.9 - Other specified diabetes mellitus without complications, R20.2 - Paresthesia of skin, S46.811A - Strain of other muscles, fascia and tendons at shoulder and upper arm level, right arm, initial encounter, Z00.01 - Encounter for general adult medical examination with abnormal findings TSH reflex Free T4 Today E13.9 - Other specified diabetes mellitus without complications, R20.2 - Paresthesia of skin, S46.811A - Strain of other muscles, fascia and tendons at shoulder and upper arm level, right arm, initial encounter, Z00.01 - Encounter for general adult medical examination with abnormal findings Coding Level of Care Code Est Pt Prev Care 18-39y(00831) Diagnoses Encounter for general adult medical examination with abnormal findings Z00.01 Diabetes 1.5, managed as type 2 E13.9 Strain of right trapezius muscle, initial encounter S46.811A Encounter type: initial encounter Paresthesia of right upper extremity R20.2
== END 2023-02-26 15:02 | disposition home or self-care (01) ==
PROVIDERS: PCP Internal Medicine; Visit Provider Internal Medicine
DX: Z00.01 Encounter for general adult medical examination with abnormal findings (principal); E13.9 Other specified diabetes mellitus without complications; S46.811A Strain of other muscles, fascia and tendons at shoulder and upper arm level, right arm, initial encounter; R20.2 Paresthesia of skin; Z23 Encounter for immunization
CPT/HCPCS: 90471; 90686; 99395

== ENCOUNTER 2023-03-01 08:46 | Outpatient (REF) | payer OTHER, SELFPAY ==
[2023-03-01 11:38] LABS: MANUAL DIFF FLAG NO
[2023-03-01 11:58] LABS: Estimated Average Glucose 117 mg/dL; Hemoglobin A1c % 5.7 % (<6.0)
[2023-03-01 12:14] LABS: Alanine Aminotransferase 28 U/L (0-31); Albumin Level 4.4 g/dL (3.5-5.0); Alkaline Phosphatase 71 U/L (39-117); Anion Gap 16 (12-20); Aspartate Amino Transferase 18 U/L (5-31); Bilirubin Total 0.7 mg/dL (0.0-1.0); Blood Urea Nitrogen 14 mg/dL (9-16); Calcium 9.3 mg/dL (8.4-10.2); Carbon Dioxide 21 mmol/L (22-29); Chloride 108 mmol/L (96-108); Cholesterol 230 mg/dL (<200); Estimated Glomerular Filt Rate > 60; Glucose Fasting 126 mg/dL (60-99); HDL Cholesterol 65 mg/dL (>40); LDL Cholesterol Calculated 140 mg/dL (<100); Potassium 3.9 mmol/L (3.3-5.1); Sodium 141 mmol/L (135-145); Total Protein 7.3 g/dL (6.5-8.0); Triglycerides 125 mg/dL (<150)
[2023-03-01 12:20] LABS: TSH reflex Free T4 2.61 uIU/mL (0.32-4.0)
[2023-03-01 12:21] LABS: Basophils Percent Auto 0.4 % (0-2); Eosinophils Absolute Auto 0.1 X10*3/uL (0.0-0.4); Eosinophils Percent Auto 1.6 % (0-4); Hematocrit 37.5 % (37.0-47.0); Hemoglobin 12.5 g/dl (12.0-16.0); Imm Gran Abs Auto 0.02 X10*3/uL (0.00-0.03); Imm Gran Pct Auto 0.3 % (0.0-0.4); Lymphocytes Percent Auto 42.2 % (20-40); Mean Corpuscular HGB Conc 33.3 g/dl (31.0-35.0); Mean Corpuscular Hemoglobin 29.9 pg (27.0-33.0); Mean Corpuscular Volume 89.7 fL (80.0-98.0); Mean Platelet Volume 11.1 fL (9.4-12.3); Monocytes Absolute Auto 0.4 X10*3/uL (0.1-1.2); Monocytes Percent Auto 6.3 % (2-11); Neutrophils Absolute Auto 3.5 x10*3/uL (2.0-8.3); Neutrophils Percent Auto 49.2 % (45-73); Platelet Count 291 X10*3/uL (160-400); Red Blood Count 4.18 X10*6/uL (4.20-5.50); Red Cell Distribution Width 12.3 % (11.0-16.0)
[2023-03-01 12:27] LABS: Vitamin B12 499 pg/mL (200-900)
[2023-03-06 10:49] LABS: Vitamin D 25-OH, D2 <4 ng/mL; Vitamin D 25-OH, D3 19 ng/mL; Vitamin D 25-OH, Total 19 ng/mL (30-100)
== END 2023-03-01 08:47 | disposition home or self-care (01) ==
LOC: HO.HMGCLDS 08:46
PROVIDERS: PCP Internal Medicine; Visit Provider Internal Medicine
DX: Z00.01 Encounter for general adult medical examination with abnormal findings (principal); E13.9 Other specified diabetes mellitus without complications; S46.811A Strain of other muscles, fascia and tendons at shoulder and upper arm level, right arm, initial encounter; R20.2 Paresthesia of skin
CPT/HCPCS: 36415; 80053; 80061; 82306; 82607; 83036; 84443; 85025

== ENCOUNTER 2023-03-24 07:00 | Outpatient (RCR) | payer OTHER, SELFPAY ==
--- NOTE | 2023-03-03 08:23 | MHC.PT.EP ---
[facility] [place] Office [place] Office [place] Office [address] Memo Garcia [address] [phone] F: [phone] F: [phone] F: [phone] F: [phone] Physical Therapy Plan of Care Date of Evaluation: 03/03/23 Date of Surgery: Diagnosis: R trap strain Assessment: Patient is a 33 year old R handed female who presents with s/s consistent with neck pain, R trap strain. She is currently not working and at home with her kids during the day. Patient past medical history includes DM which is well controlled.. Current impairments include pain, posture, ROM, strength, activity tolerance and functional mobility. Functional limitations include decreased ability to lift, carry, nurse, sleep, push and pull. She denies HAYNES at this time. Patient is motivated with good rehab potential. Skilled PT will address impairments and functional limitations in order to achieve goals. Frequency and Duration: The patient will be seen 2x/week for 5 weeks Short Term Goals: I with HEP - 2 weeks AROM rotation to 80 b/l - 3 weeks LS TTP absent - 3 weeks TrP absent - 3 weeks Snf Goals: Full cervical AROM pain free - 5 weeks s/s 2/10 max during daily routines - 5 weeks Treatment Plan: Modalities to reduce pain, spasms and effusion. Manual therapy to restore motion and function. Therapeutic exercise to improve strength and flexibility. Neuromuscular re-education for posture and balance. Therapeutic activities to return to functional activities of daily living. Electronically signed by: Raymond Blakely PT Please sign and return to therapist. Thank you for your referral.
--- NOTE | 2023-05-25 07:32 | MHC.PT.DC ---
[facility] [place] Office [place] Office [place] Office [address] Memo Garcia [address] [phone] F: [phone] F: [phone] F: [phone] F: [phone] Physical Therapy Discharge Report Diagnosis: R trap strain Date of Surgery: Date of Evaluation: 03/03/23 Date of Discharge: 04/10/23 Treatments to Date: 5 Cancellations to Date: No Shows to Date: Discharge Status: Independent with HEP Discharge Summary: Pt is I with HEP. She was progressing with PT and elected to continue exclusively with HEP as her s/s were improving. She will be d/c to HEP at this time. 03/24/23: pt has been feeling better overall. more able to manage s/s and is optimistic with progress so far. we will continue to progress as tolerated. 03/17/23: Pt progressing with posture. s/s improving. we educated max on mechanics and carryover. pt understanding. Noted tenderpoints along R levator insertion and medial scapular borders. Added a third set today of exercises and pt tends to fatigue by end of third set. Trial of chin tucks and pt performed with increased flexion, tried to correct however increased pain noted, so held. Educated pt to perform exercises in tolerable range as she tends to stretch into pain; good carryover and less sx reported. Reviewed carrying baby carseat, laundry baskets. She left with slightly improved sx and less sx. Electronically signed by: Raymond Blakely, PT Please sign and return to therapist. Thank you for your referral.
== END 2023-05-25 07:33 | disposition home or self-care (01) ==
LOC: HO.PTCHIC 07:00
PROVIDERS: PCP Internal Medicine; Visit Provider Internal Medicine
DX: S46.811A Strain of other muscles, fascia and tendons at shoulder and upper arm level, right arm, initial encounter (principal)
CPT/HCPCS: 97110; 97140; 97162